=== PATIENT | female | born 1995 | race Caucasian/White ===

== ENCOUNTER 2020-06-16 10:25 | Emergency (ER) | payer OTHER, SELFPAY ==
--- NOTE | ~2020-06-16 | US_ITS ---
EXAMINATION: US PELVIS, LIMITED/FOLLOW UP CLINICAL INFORMATION: Right-sided pelvic pain. COMPARISON: CT scan of the abdomen and pelvis performed today. TECHNIQUE: FINDINGS: Uterus: 6.9 x 3.5 x 4.0 cm. Anteverted/anteflexed. The myometrium is unremarkable. The endometrial stripe measures up to 0.5 cm without focal abnormality. The cervix is unremarkable. Right ovary: 1.8 x 1.6 x 1.7 cm with a volume of 2.6 cm. Doppler interrogation showed no abnormal vascular flow. No right adnexal abnormality. Left ovary: 2.0 x 1.9 x 1.7 cm with a volume of 3.4 cm. Doppler interrogation showed no abnormal vascular flow. No left adnexal abnormality. Urinary bladder: Mildly distended without focal abnormality. US/US pelvic ovarian doppler IMPRESSION: Unremarkable pelvic ultrasound.
--- NOTE | ~2020-06-16 | CT_ITS ---
EXAMINATION: CT ABDOMEN AND PELVIS WITH CONTRAST CLINICAL INFORMATION: Right lower quadrant pain COMPARISON: None TECHNIQUE: Multidetector volumetric images were obtained from the superior aspect of the liver through the pubic symphysis following administration 85 mL of Omnipaque 350 intravenous contrast. Sagittal and coronal reformatted images were obtained on the technologist's workstation. Oral contrast: No This CT examination was performed using dose optimization techniques as appropriate, variously including the following: *Automated exposure control *Adjustment of mA and/or kV according to patient size (this includes techniques or standardized protocols for targeted exams where dose is matched to indication/reason for exam; i.e. extremities or head) *Use of iterative reconstruction technique DLP: 461 mGy-cm FINDINGS: LUNG BASES: The visualized lung bases are unremarkable. LIVER, GALLBLADDER, AND BILIARY TREE: The liver is normal in size, shape, and attenuation. No focal hepatic lesion or biliary ductal dilatation is present. The gallbladder is unremarkable with no evidence of radiopaque gallstones, gallbladder wall thickening, or obvious pericholecystic inflammatory changes. PANCREAS: Unremarkable. SPLEEN: Unremarkable. ADRENAL GLANDS: Unremarkable. KIDNEYS AND URETERS: The kidneys are normal in size, shape, and attenuation. No hydronephrosis, hydroureter, or calculi seen. No perinephric stranding. BLADDER: Unremarkable. GASTROINTESTINAL TRACT: The small and large bowel are unremarkable. The appendix is unremarkable. ABDOMINAL WALL: No significant hernia is appreciated. LYMPH NODES: Normal. VASCULAR: Unremarkable. PELVIC VISCERA: There is a small amount of fluid in the pelvis in the right adnexal region, possibly a recently ruptured ovarian cyst. OSSEOUS STRUCTURES: Unremarkable. CT/CT abdomen pelvis w con IMPRESSION: No focal inflammatory process or obstruction. Normal appendix. Small amount of free fluid in the right pelvis, possibly a recently ruptured ovarian cyst/follicle.
--- NOTE | ~2020-06-16 | US_ITS ---
EXAMINATION: US PELVIS, LIMITED/FOLLOW UP CLINICAL INFORMATION: Right-sided pelvic pain. COMPARISON: CT scan of the abdomen and pelvis performed today. TECHNIQUE: FINDINGS: Uterus: 6.9 x 3.5 x 4.0 cm. Anteverted/anteflexed. The myometrium is unremarkable. The endometrial stripe measures up to 0.5 cm without focal abnormality. The cervix is unremarkable. Right ovary: 1.8 x 1.6 x 1.7 cm with a volume of 2.6 cm. Doppler interrogation showed no abnormal vascular flow. No right adnexal abnormality. Left ovary: 2.0 x 1.9 x 1.7 cm with a volume of 3.4 cm. Doppler interrogation showed no abnormal vascular flow. No left adnexal abnormality. Urinary bladder: Mildly distended without focal abnormality. US/US pelvic limited IMPRESSION: Unremarkable pelvic ultrasound.
[2020-06-16 10:27] VITALS: BP 138/71; PULSE 94; RESP 16; TEMP 36.7; O2SAT 98; BMI 24.5
--- NOTE | 2020-06-16 11:09 | ED.ABDPAIN ---
HPI - Abdominal Pain General Chief Complaint: Abdominal Pain Stated Complaint: NAUSEA ABD PAIN Time Seen by Provider: 06/16/20 11:05 Source: patient Mode of arrival: ambulatory Limitations: no limitations History of Present Illness MD elicited complaint: abdominal pain Onset (ago): day(s) (2) Pain Consistency: constant Location: RLQ Severity: moderate Quality: stabbing Radiation: none Migration to: no migration Exacerbating factors: eating and vomiting Relieving factors: nothing Associated symptoms: nausea, vomiting and chills Related Data Previous Rx's Medication Instructions Recorded cyclobenzaprine 10 mg PO TID PRN #14 tab 06/16/20 ibuprofen 600 mg PO Q6H PRN #30 tab 06/16/20 ondansetron 4 mg PO Q8H PRN #20 tab 06/16/20 Allergies Allergy/AdvReac Type Severity Reaction Status Date / Time morphine [MORPHINE] Allergy Unknown HIVES Unverified 01/25/20 19:01 Review of Systems Review of Systems Constitutional : No Weight loss, No Fever, pos Chills ENT/Mouth : No sore throat, No Rhinorrhea Eyes: No Swelling, No Redness Cardiovascular : No Chest Pain, No SOB, NoEdema Respiratory : No Cough, No Sputum, No Wheezing Gastrointestinal : Positive Nausea, Positive Vomiting, no Diarrhea, positive abdominal Pain, No Hematochezia, No Melena Genitourinary : No Dysuria, No Urinary Frequency, No Hematuria, No Urgency Musculoskeletal : No joint pain, No Myalgias, No Joint Swelling Skin : No Skin Lesions, No rash Neuro : No Weakness, No Numbness, No Dizziness, No Headache Psych : No Anxiety/Panic, No Depression Heme/Lymph: No Bruising, No Lymphadenopathy Endocrine : No Polyuria, No Polydipsia All other systems reviewed and are negative. Physical Exam Vital Signs: Vital Signs: Last Vital Signs Temp 98.1 F 06/16/20 10:27 Pulse 94 06/16/20 10:27 Resp 16 06/16/20 10:27 BP 138/71 06/16/20 10:27 Pulse Ox 98 06/16/20 10:27 Body Mass Index 24.5 Appearance: Alert. Oriented X3. No acute distress. Eyes: Pupils equal, round and reactive to light. ENT: Pharynx normal. Neck: Normal inspection. Neck supple. CVS: Normal heart rate and rhythm. Pulses normal. Respiratory: No respiratory distress. Breath sounds normal. Abdomen: Soft and moderate ttp in R mid to RLQ with no rebound mild guarding, + Rovsings sign Skin: Skin warm and dry. Normal skin color. Normal skin turgor. Extremities: No lower extremity edema. No calf ttp Neuro: Oriented X 3. No motor deficit. No sensory deficit. Course Course Course Narrative: no WBC count - no appendicitis, normal GB, LFTs stable, likely ruptured cyst will obtain US to r/o torsion - patient has significant pain on arrival to the ED negative US able to tolerate PO stable for DC MDM - Abdominal Pain MDM Narrative Medical decision making narrative: 24 yo female with RLQ pain x 2 days with N/V at this time will need labs, CT scan for appendicitis, IV Toradol, IV ativan for anxiety Lab Data Result diagrams: 06/16/20 11:23 06/16/20 11:23 Labs: Lab Results 06/16/20 06/16/20 06/16/20 Range/Units 11:23 11:23 11:23 WBC 7.2 (4.8-10.8) X10*3/uL RBC 5.07 (4.20-5.50) X10*6/uL Hgb 15.0 (12.0-16.0) g/dl Hct 43.8 (37-47) % MCV 86.4 (80-98) fL MCH 29.6 (27.0-33.0) pg MCHC 34.2 (31.0-35.0) g/dl RDW 11.4 (11.0-16.0) % Plt Count 238 (160-400) X10*3/uL MPV 10.8 (9.4-12.3) fL Immature Gran % (Auto) 0.0 (0.0-0.4) % Neut % (Auto) 68.5 (45-73) % Lymph % (Auto) 23.9 (20-40) % Pike % (Auto) 5.8 (2-11) % Eos % (Auto) 1.0 (0-4) % Baso % (Auto) 0.8 (0-2) % Lymph # (Auto) 1.7 (1.2-4.9) X10*3/uL Pike # (Auto) 0.4 (0.1-1.2) X10*3/uL Eos # (Auto) 0.1 (0.0-0.4) X10*3/uL Baso # (Auto) 0.1 (0.0-0.2) X10*3/uL Abs Immat Gran (auto) 0.00 (0.00-0.03) X10*3/uL Absolute Neuts (auto) 4.9 (2.0-8.3) X10*3/uL Absolute Nucleated RBC 0.000 (0.0-0.012) X10*3/uL Nucleated RBC % (auto) 0.0 (0.0-0.2) /100WBC PT 13.3 H (10.8-13.0) SEC INR 1.1 (0.9-1.1) APTT 38.8 H (24.1-38.0) SEC Sodium 141 (135-145) mmol/L Potassium 3.7 (3.3-5.1) mmol/L Chloride 103 (96-108) mmol/L Carbon Dioxide 29 (22-29) mmol/L Anion Gap 13 (12-20) BUN 12 (9-16) mg/dL Creatinine 0.77 (0.5-1.4) mg/dL Estim Creat Clear Calc 91.3 Estimated GFR > 60 Random Glucose 94 (60-115) mg/dL Calcium 9.6 (8.4-10.2) mg/dL Magnesium 1.9 (1.6-2.6) mg/dL Total Bilirubin 1.1 H (0.0-1.0) mg/dL Direct Bilirubin 0.5 (0.0-0.5) mg/dL AST 15 (5-31) U/L ALT 14 (0-31) U/L Alkaline Phosphatase 48 (39-117) U/L Total Protein 7.8 (6.5-8.0) g/dL Albumin 5.0 (3.5-5.0) g/dL Lipase 17 (8-78) U/L Urine Color Urine Appearance Urine pH (5.0-8.0) Ur Specific [place]se[place] (1.005-1.025) Urine Protein (NEG-TRACE) MG/DL Urine Glucose (UA) (NEG) MG/DL Urine Ketones (NEG) MG/DL Urine Blood (NEG) Urine Nitrite (NEG) Ur Leukocyte Esterase (NEG) Urine RBC (0) /HPF Urine WBC (0-4) /HPF Ur Squamous Epith Cells /LPF Urine Bacteria /LPF Urine Mucus /LPF Urine Test (NEGATIVE) COVID-19 (HUONG) (Negative) COVID-19 Clin [facility] 06/16/20 06/16/20 Range/Units 11:37 11:37 WBC (4.8-10.8) X10*3/uL RBC (4.20-5.50) X10*6/uL Hgb (12.0-16.0) g/dl Hct (37-47) % MCV (80-98) fL MCH (27.0-33.0) pg MCHC (31.0-35.0) g/dl RDW (11.0-16.0) % Plt Count (160-400) X10*3/uL MPV (9.4-12.3) fL Immature Gran % (Auto) (0.0-0.4) % Neut % (Auto) (45-73) % Lymph % (Auto) (20-40) % Pike % (Auto) (2-11) % Eos % (Auto) (0-4) % Baso % (Auto) (0-2) % Lymph # (Auto) (1.2-4.9) X10*3/uL Pike # (Auto) (0.1-1.2) X10*3/uL Eos # (Auto) (0.0-0.4) X10*3/uL Baso # (Auto) (0.0-0.2) X10*3/uL Abs Immat Gran (auto) (0.00-0.03) X10*3/uL Absolute Neuts (auto) (2.0-8.3) X10*3/uL Absolute Nucleated RBC (0.0-0.012) X10*3/uL Nucleated RBC % (auto) (0.0-0.2) /100WBC PT (10.8-13.0) SEC INR (0.9-1.1) APTT (24.1-38.0) SEC Sodium (135-145) mmol/L Potassium (3.3-5.1) mmol/L Chloride (96-108) mmol/L Carbon Dioxide (22-29) mmol/L Anion Gap (12-20) BUN (9-16) mg/dL Creatinine (0.5-1.4) mg/dL Estim Creat Clear Calc Estimated GFR Random Glucose (60-115) mg/dL Calcium (8.4-10.2) mg/dL Magnesium (1.6-2.6) mg/dL Total Bilirubin (0.0-1.0) mg/dL Direct Bilirubin (0.0-0.5) mg/dL AST (5-31) U/L ALT (0-31) U/L Alkaline Phosphatase (39-117) U/L Total Protein (6.5-8.0) g/dL Albumin (3.5-5.0) g/dL Lipase (8-78) U/L Urine Color YELLOW Urine Appearance HAZY Urine pH 7.0 (5.0-8.0) Ur Specific [place]se[place] 1.025 (1.005-1.025) Urine Protein TRACE (NEG-TRACE) MG/DL Urine Glucose (UA) NEG (NEG) MG/DL Urine Ketones 15 (NEG) MG/DL Urine Blood 3+ H (NEG) Urine Nitrite NEG (NEG) Ur Leukocyte Esterase NEG (NEG) Urine RBC 15-29 H (0) /HPF Urine WBC 0 (0-4) /HPF Ur Squamous Epith Cells 2+ /LPF Urine Bacteria TRACE /LPF Urine Mucus 2+ /LPF Urine Test NEGATIVE (NEGATIVE) COVID-19 (HUONG) Negative (Negative) COVID-19 Clin Com See Note Discharge Plan Discharge Clinical Impression: Ovarian cyst rupture Abdominal pain Qualifiers: Abdominal location: right lower quadrant Qualified Code(s): R10.31 - Right lower quadrant pain Patient Disposition: Home, Self-Care Instructions: Abdominal Pain (ED), Ruptured Ovarian Cyst (ED) Additional Instructions: return to ED for any worsening symptoms or concerns Prescriptions: New cyclobenzaprine 10 mg tablet 10 mg PO TID PRN (Reason: muscle spasm) Qty: 14 RF: 0 ibuprofen 600 mg tablet 600 mg PO Q6H PRN (Reason: pain) Qty: 30 RF: 0 ondansetron 4 mg tablet,disintegrating 4 mg PO Q8H PRN (Reason: nausea and vomiting) Qty: 20 RF: 0 Referrals: Mouna Samson MD [Primary Care Provider] - 2 days (if not better) Stand Alone Forms: Work/School Release [facility] Past Medical History Attestation statement: The following information was validated with the patient. Medical History No known health problems Social History Social History (Updated 06/16/20 @ 11:24 by Olinda Jaime DO) Smoking Status: Never smoker Use of substances other than those prescribed or required for medical reasons: No Advance Directives: No Advance Directives Information Provided: No
[2020-06-16 11:27] LABS: MANUAL DIFF FLAG NO
[2020-06-16 11:28] LABS: Basophils Absolute Auto 0.1 X10*3/uL (0.0-0.2); Basophils Percent Auto 0.8 % (0-2); Eosinophils Absolute Auto 0.1 X10*3/uL (0.0-0.4); Hematocrit 43.8 % (37-47); Lymphocytes Absolute Auto 1.7 X10*3/uL (1.2-4.9); Lymphocytes Percent Auto 23.9 % (20-40); Mean Corpuscular HGB Conc 34.2 g/dl (31.0-35.0); Mean Corpuscular Hemoglobin 29.6 pg (27.0-33.0); Mean Corpuscular Volume 86.4 fL (80-98); Mean Platelet Volume 10.8 fL (9.4-12.3); Monocytes Absolute Auto 0.4 X10*3/uL (0.1-1.2); Monocytes Percent Auto 5.8 % (2-11); Neutrophils Absolute Auto 4.9 X10*3/uL (2.0-8.3); Neutrophils Percent Auto 68.5 % (45-73); Platelet Count 238 X10*3/uL (160-400); Red Blood Count 5.07 X10*6/uL (4.20-5.50); Red Cell Distribution Width 11.4 % (11.0-16.0); White Blood Count 7.2 X10*3/uL (4.8-10.8)
[2020-06-16 11:34] LABS: INTERNATIONAL NORM RATIO 1.1 (0.9-1.1); Prothrombin Time 13.3 SEC (10.8-13.0)
[2020-06-16] MEDS: LORazepam 2 MG/ML VIAL 0.5 MG IVPUSH (11:34)
[2020-06-16] MEDS: Ketorolac Tromethamine 30 MG/ML VIAL IVPUSH (11:34)
[2020-06-16] MEDS: ondansetron HCL 4 MG/2 ML VIAL IVPUSH (11:34)
[2020-06-16] MEDS: 0.9 % Sodium Chloride 1,000 ML 999 ML IVCONT (11:35)
[2020-06-16 11:36] LABS: Partial Thromboplastin Time 38.8 SEC (24.1-38.0)
[2020-06-16 11:49] LABS: Glucose Urine UA NEG (NEG); Leukocyte Esterase Urine NEG (NEG); Nitrite Urine NEG (NEG); Specific Gravity - Urine 1.025 (1.005-1.025); Urine Blood 3+ (NEG); Urine Ketones 15 MG/DL (NEG); Urine Protein TRACE MG/DL (NEG-TRACE)
[2020-06-16 11:51] LABS: Appearance Urine HAZY; Color Urine YELLOW; UPreg QC Valid YES; Urine Pregnancy NEGATIVE (NEGATIVE)
[2020-06-16 11:52] LABS: Alanine Aminotransferase 14 U/L (0-31); Alkaline Phosphatase 48 U/L (39-117); Anion Gap 13 (12-20); Aspartate Amino Transferase 15 U/L (5-31); Bilirubin Direct 0.5 mg/dL (0.0-0.5); Bilirubin Total 1.1 mg/dL (0.0-1.0); Blood Urea Nitrogen 12 mg/dL (9-16); Calcium 9.6 mg/dL (8.4-10.2); Carbon Dioxide 29 mmol/L (22-29); Chloride 103 mmol/L (96-108); Creatinine Clr Calc Pharmacy 91.3; Estimated Glomerular Filt Rate > 60; Glucose Random 94 mg/dL (60-115); Lipase 17 U/L (8-78); Magnesium 1.9 mg/dL (1.6-2.6); Potassium 3.7 mmol/L (3.3-5.1); Sodium 141 mmol/L (135-145); Total Protein 7.8 g/dL (6.5-8.0)
[2020-06-16 11:56] LABS: COVID-19 Test Negative (Negative)
[2020-06-16 12:12] LABS: Bacteria Urine TRACE /LPF; Mucus Urine 2+ /LPF; Squamous Epithelial Cell Urine 2+ /LPF; WBC Urine 0 /HPF (0-4)
[2020-06-16] MEDS: iohexoL 350 MG/ML 100 ML INFUS..BTL IV (13:13)
== END 2020-06-16 15:59 | disposition home or self-care (01) ==
PROVIDERS: Emergency Provider Emergency Medicine; PCP Internal Medicine
DX: R10.31 Right lower quadrant pain (principal); N83.201 Unspecified ovarian cyst, right side; Z20.822 Contact with and (suspected) exposure to COVID-19
CPT/HCPCS: 36415; 74177; 76857; 80048; 80076; 81001; 81025; 83690; 83735; 85025; 85610; 85730; 87635; 93975; 96361; 96374; 96375; 99283; 99284; J1885; J2060; J2405; Q9967

== ENCOUNTER → 2020-10-08 14:49 | Outpatient (BNVA) | payer OTHER, SELFPAY | PROVIDERS: PCP Internal Medicine; Visit Provider Physician Assistant | DX: S60.021A Contusion of right index finger without damage to nail, initial encounter (principal); W23.0XXA Caught, crushed, jammed, or pinched between moving objects, initial encounter | CPT/HCPCS: 73140; 99203 ==

== ENCOUNTER → 2020-10-15 09:35 | Outpatient (BNVA) | payer OTHER, SELFPAY | PROVIDERS: PCP Internal Medicine; Visit Provider Physician Assistant | DX: S60.021A Contusion of right index finger without damage to nail, initial encounter (principal); X58.XXXA Exposure to other specified factors, initial encounter | CPT/HCPCS: 99213 ==

== ENCOUNTER → 2020-12-09 15:12 | Outpatient (BNVA) | payer OTHER, SELFPAY | PROVIDERS: PCP Internal Medicine; Visit Provider Internal Medicine | DX: S41.151A Open bite of right upper arm, initial encounter (principal); W50.3XXA Accidental bite by another person, initial encounter | CPT/HCPCS: 99213 ==

== ENCOUNTER → 2021-09-18 13:00 | Outpatient (BNVA) | payer OTHER, SELFPAY | PROVIDERS: PCP Internal Medicine | DX: Z13.89 Encounter for screening for other disorder (principal) | CPT/HCPCS: 36415; 84450; 84460; 86803; 87389; 99203 ==

== ENCOUNTER → 2021-09-30 12:43 | Outpatient (BNVA) | payer OTHER, SELFPAY | PROVIDERS: PCP Internal Medicine | DX: Z13.89 Encounter for screening for other disorder (principal) | CPT/HCPCS: 73030; 73080; 73564; 99203 ==

== ENCOUNTER → 2021-10-02 08:28 | Outpatient (BNVA) | payer OTHER, SELFPAY | PROVIDERS: PCP Internal Medicine; Visit Provider Physician Assistant Medical | DX: Z13.89 Encounter for screening for other disorder (principal) | CPT/HCPCS: 99213 ==

== ENCOUNTER → 2021-10-17 09:50 | Outpatient (BNVA) | payer OTHER, SELFPAY | PROVIDERS: PCP Internal Medicine; Visit Provider Physician Assistant Medical | DX: Z13.89 Encounter for screening for other disorder (principal) | CPT/HCPCS: 99213 ==

== ENCOUNTER → 2021-12-24 08:48 | Outpatient (BNVA) | payer SELFPAY | PROVIDERS: PCP Internal Medicine | DX: Z02.83 Encounter for blood-alcohol and blood-drug test (principal) ==

== ENCOUNTER 2022-01-09 08:00 | Outpatient (RCR) | payer OTHER, SELFPAY ==
--- NOTE | 2021-10-16 15:37 | MHC.PT.EP ---
[facility] [place] Office [place] Office [place] Office [address] [phone] F: [phone] F: [phone] F: [phone] F: [phone] Physical Therapy Plan of Care Date of Evaluation: Date of Surgery: NA Diagnosis: right shoulder contusion right knee contusion Assessment: Shantel is a 26 F referred to PT for right shoulder contusion and right knee contusion. She presents with constant discomfort and pain in her shoulders throughout all activities and has difficulty with kneeling. She presents with limited cervical ROM and responds to repeated cervical retractions in sitting. Shantel will benefit from PT to increase her cervical ROM, centralize symptoms, receive education on postural positioning along with management of knee swelling and education on symptom management. Frequency and Duration: The patient will be seen 2/week for 4 weeks Short Term Goals: Patient will demonstrate 20% increase in cervical ROM to promote improved functional performance in 2 weeks Patient will demonstrate self management of pain to decrease activity limitations in 2 weeks [employer]ist Goals: Patient will be I with HEP to promote long-term self management and maintain functional capabilities in 4 weeks Patient will report a 50% decrease in pain to allow for return to work and PLOF in 4 weeks Treatment Plan: Modalities to reduce pain, spasms and effusion. Manual therapy to restore motion and function. Therapeutic exercise to improve strength and flexibility. Neuromuscular re-education for posture and balance. Therapeutic activities to return to functional activities of daily living. Electronically signed by: Annie Hoffman PT DPT Please sign and return to therapist. Thank you for your referral.
--- NOTE | 2022-01-09 09:16 | MHC.PT.DC ---
[facility] [place] Office [place] Office [place] Office [address] Krishna Beasley [address] [phone] F: [phone] F: [phone] F: [phone] F: [phone] Physical Therapy Discharge Report Diagnosis: right shoulder contusion right knee contusion Date of Surgery: NA Date of Evaluation: 10/16/21 Date of Discharge: 01/09/22 Treatments to Date: 17 Cancellations to Date: 0 No Shows to Date: 0 Discharge Status: Achieved Goals Improved Function Independent with HEP Discharge Summary: Shantel has completed 17 PT visits. She arrived stating she is feeling less stiff. She still experiences pain in her neck but it is less intense and it is mostly present with sitting for long duration. She has improved significantly and is independent with all HEPs. She has achieved all goals set for her as well. Shantel is therefore being d/c from PT today. Electronically signed by: Annie Hoffman PT DPT Please sign and return to therapist. Thank you for your referral.
== END 2022-01-09 09:17 | disposition home or self-care (01) ==
LOC: HO.PT 08:00
PROVIDERS: Visit Provider Physician Assistant Medical
DX: S40.011D Contusion of right shoulder, subsequent encounter (principal); S80.01XD Contusion of right knee, subsequent encounter
CPT/HCPCS: 97012; 97014; 97110; 97112; 97140; 97161

== ENCOUNTER → 2022-03-20 15:25 | Outpatient (BNVA) | payer OTHER, SELFPAY | DX: Z13.89 Encounter for screening for other disorder (principal) | CPT/HCPCS: 36415; 84450; 84460; 86803; 87389; 99211 ==

== ENCOUNTER → 2022-05-13 11:32 | Outpatient (BNVA) | payer OTHER, SELFPAY | PROVIDERS: PCP Hospitalist | DX: Z13.89 Encounter for screening for other disorder (principal) | CPT/HCPCS: 73130; 99204 ==

== ENCOUNTER → 2022-05-15 10:57 | Outpatient (BNVA) | payer OTHER, SELFPAY | PROVIDERS: PCP Hospitalist; Visit Provider Physician Assistant Medical | DX: Z13.89 Encounter for screening for other disorder (principal) | CPT/HCPCS: 99213 ==

== ENCOUNTER 2022-06-18 11:24 | Emergency (ER) | payer OTHER, SELFPAY ==
[2022-06-18 11:27] VITALS: BP 91/32; PULSE 83; RESP 16; O2SAT 99; BMI 25.4
[2022-06-18 11:35] VITALS: BP 116/59; PULSE 83; O2SAT 99
[2022-06-18 11:43] LABS: MANUAL DIFF FLAG NO
[2022-06-18] MEDS: ondansetron HCL 4 MG/2 ML VIAL IVPUSH (11:47)
[2022-06-18] MEDS: 0.9 % Sodium Chloride 1,000 ML 999 ML IV (11:47)
[2022-06-18] MEDS: Meclizine HCl 25 MG TABLET PO (11:47)
[2022-06-18] MEDS: Ketorolac Tromethamine 15 MG/ML VIAL IVPUSH (11:47)
[2022-06-18 11:57] LABS: Basophils Absolute Auto 0.1 X10*3/uL (0.0-0.2); Basophils Percent Auto 0.9 % (0-2); Eosinophils Absolute Auto 0.1 X10*3/uL (0.0-0.4); Eosinophils Percent Auto 1.9 % (0-4); Hematocrit 36.7 % (37.0-47.0); Hemoglobin 12.4 g/dl (12.0-16.0); Imm Gran Abs Auto 0.02 X10*3/uL (0.00-0.03); Imm Gran Pct Auto 0.3 % (0.0-0.4); Lymphocytes Absolute Auto 2.3 X10*3/uL (1.2-4.9); Lymphocytes Percent Auto 31.5 % (20-40); Mean Corpuscular HGB Conc 33.8 g/dl (31.0-35.0); Mean Corpuscular Hemoglobin 27.7 pg (27.0-33.0); Mean Corpuscular Volume 81.9 fL (80.0-98.0); Mean Platelet Volume 11.2 fL (9.4-12.3); Monocytes Absolute Auto 0.7 X10*3/uL (0.1-1.2); Monocytes Percent Auto 8.8 % (2-11); Neutrophils Absolute Auto 4.2 x10*3/uL (2.0-8.3); Neutrophils Percent Auto 56.6 % (45-73); Platelet Count 213 X10*3/uL (160-400); Red Blood Count 4.48 X10*6/uL (4.20-5.50); Red Cell Distribution Width 11.6 % (11.0-16.0); White Blood Count 7.4 X10*3/uL (4.8-10.8)
[2022-06-18 12:01] LABS: Alanine Aminotransferase 24 U/L (0-31); Albumin Level 3.9 g/dL (3.5-5.0); Alkaline Phosphatase 43 U/L (39-117); Anion Gap 10 (12-20); Aspartate Amino Transferase 24 U/L (5-31); Bilirubin Direct 0.3 mg/dL (0.0-0.5); Blood Urea Nitrogen 12 mg/dL (9-16); Calcium 9.1 mg/dL (8.4-10.2); Carbon Dioxide 28 mmol/L (22-29); Chloride 107 mmol/L (96-108); Creatinine Clr Calc Pharmacy 109.8; Estimated Glomerular Filt Rate > 60; Glucose Random 113 mg/dL (60-115); Lipase 17 U/L (8-78); Magnesium 1.8 mg/dL (1.6-2.6); Sodium 141 mmol/L (135-145); Total Protein 6.1 g/dL (6.5-8.0)
[2022-06-18 12:11] LABS: HCG Quantitative < 2 mIU/mL
[2022-06-18] MEDS: Butalb/Acetamin/Caff 50/325/40 TABLET 2 TAB PO (12:46)
[2022-06-18 12:52] LABS: Influenza A PCR NEGATIVE (Negative); Influenza B PCR NEGATIVE (Negative); Resp Syncy Virus RNA Qual PCR NEGATIVE (Negative); SARS COV2 PCR INHOUSE NEGATIVE (Negative)
--- NOTE | 2022-06-18 13:05 | ED.GENADULT ---
HPI - General Adult General Chief complaint: Syncope <ONEIDA Herrera Last Filed: 06/18/22 19:08> Stated complaint: NEAR SYNCOPE <ONEIDA Herrera Last Filed: 06/18/22 19:08> Time Seen by Provider: 06/18/22 11:29 <ONEIDA Herrera Last Filed: 06/18/22 19:08> Source: patient <ONEIDA Herrera Last Filed: 06/18/22 19:08> Mode of arrival: ambulatory <ONEIDA Herrera Last Filed: 06/18/22 19:08> History of Present Illness HPI narrative: 26-year-old female with no significant past medical history presenting to ED s/p near syncopal episode while at work. Patient walked out of a patient's room and began to feel lightheaded/pale. Reports feeling generally unwell with mild headache and upper abdominal pain x a few days, with mild decreased p.o. intake today. Reports associated paresthesias to hands and feet. Denies vision change/ loss, CP/SOB, nausea/vomiting, LOC. Denies taking anticoagulation. Headache not maximal at onset <ONEIDA Herrera Last Filed: 06/18/22 19:08> Onset (ago): minute(s) <ONEIDA Herrera Last Filed: 06/18/22 19:08> Related Data Home medications: Home Medications Medication Instructions Recorded Confirmed citalopram 10 mg tablet 10 mg PO DAILY 12/27/21 citalopram 20 mg tablet 20 mg PO DAILY 12/27/21 dupilumab 300 mg/2 mL subcutaneous mg subcut 12/27/21 syringe ([employer]) gabapentin 100 mg capsule 100 mg PO TID PRN anxiety 12/27/21 Previous Rx's Medication Instructions Recorded azithromycin 250 mg tablet See Rx Instructions PO .COMPLEX #6 12/27/21 tabs <ONEIDA Herrera Last Filed: 06/18/22 19:08> Allergies/adverse reactions: Allergies Allergy/AdvReac Type Severity Reaction Status Date / Time morphine [MORPHINE] Allergy Unknown HIVES Unverified 12/27/21 12:30 <ONEIDA Herrera Last Filed: 06/18/22 19:08> Review of Systems Review of Systems: Constitutional: No Fever, No Chills, No Night Sweats, No Fatigue, No Malaise ENT/Mouth: No Ear Pain, No Nasal Congestion, No sore throat, No Rhinorrhea, No Swallowing Difficulty Eyes: No Eye Pain, No Swelling, No Redness, No Vision Changes Cardiovascular: No Chest Pain, No SOB, No Palpitations Respiratory: No Cough, No Sputum, No Dyspnea Gastrointestinal: No Nausea, No Vomiting, No Diarrhea, No Constipation, + Abdominal discomfort Genitourinary: No Dysuria, No Hematuria, No Urinary Incontinence/retention Musculoskeletal: No joint pain, No Myalgias, No Joint Swelling Skin: No Skin Lesions, No rash Neuro: No Weakness, No Numbness, + Paresthesias, No Loss of Consciousness, + lightheaded, + Headache <ONEIDA Herrera - Last Filed: 06/18/22 19:08> Yes all other systems are reviewed and are negative <ONEIDA Herrera - Last Filed: 06/18/22 19:08> Constitutional: Constitutional: Reports as per HPI <ONEIDA Herrera - Last Filed: 06/18/22 19:08> [facility] Past Medical History Attestation statement: The following information was validated with the patient. <ONEIDA Herrera - Last Filed: 06/18/22 19:08> Medical History: Medical History No known health problems <ONEIDA Herrera Last Filed: 06/18/22 19:08> Social History Social History: Social History Advance Directives: No <ONEIDA Herrera Last Filed: 06/18/22 19:08> Physical Exam ED Vital Signs: Vital Signs - 24 hr 06/18/22 11:27 06/18/22 11:35 Pulse Rate 83 83 Respiratory Rate 16 Blood Pressure 91/32 L 116/59 L Pulse Oximetry 99 99 Oxygen Delivery Method Room Air Room Air BMI result Body Mass Index 25.4 <ONEIDA Herrera Last Filed: 06/18/22 19:08> Vital Signs - 24 hr 06/18/22 11:27 06/18/22 11:35 Pulse Rate 83 83 Respiratory Rate 16 Blood Pressure 91/32 L 116/59 L Pulse Oximetry 99 99 Oxygen Delivery Method Room Air Room Air BMI result Body Mass Index 25.4 <Nura Soria MD - Last Filed: 06/20/22 03:10> Const General: cooperative, healthy appearing and no acute distress <ONEIDA Herrera - Last Filed: 06/18/22 19:08> Orientation/consciousness: patient oriented x3 <ONEIDA Herrera - Last Filed: 06/18/22 19:08> Limitations: no limitations <ONEIDA Herrera - Last Filed: 06/18/22 19:08> HENMT Head: Yes normal to inspection and Yes atraumatic <ONEIDA Herrera - Last Filed: 06/18/22 19:08> Ears: hearing grossly normal bilaterally <ONEIDA Herrera - Last Filed: 06/18/22 19:08> General nose exam: Normal external nose present <ONEIDA Herrera - Last Filed: 06/18/22 19:08> Face and sinus: Yes normal facial exam <ONEIDA Herrera - Last Filed: 06/18/22 19:08> Eyes General: appearance normal, both eyes and all related structures <ONEIDA Herrera - Last Filed: 06/18/22 19:08> Pupils: Equal, round and reactive pupils present <ONEIDA Herrera - Last Filed: 06/18/22 19:08> EOM: EOMs intact bilaterally <ONEIDA Herrera - Last Filed: 06/18/22 19:08> Neck Neck: Yes normal visual inspection and Yes no meningeal signs <ONEIDA Herrera - Last Filed: 06/18/22 19:08> Resp Effort & Inspection: normal respiratory effort and no respiratory distress <ONEIDA Herrera - Last Filed: 06/18/22 19:08> Auscultation: clear to auscultation bilaterally <ONEIDA Herrera - Last Filed: 06/18/22 19:08> Cardio Rate: regular rate <ONIEDA Herrera - Last Filed: 06/18/22 19:08> Heart sounds: S1 normal heart sound present and S2 normal heart sound present <Iza Poulernat, PA - Last Filed: 06/18/22 19:08> GI Inspection: Yes normal to inspection <Iza Poulernat, PA - Last Filed: 06/18/22 19:08> Palpation (GI): Soft to palpation, nontender, no guarding and not rigid <Iza Poulernat, PA - Last Filed: 06/18/22 19:08> General: Yes no CVA tenderness <Iza Pouliot, PA - Last Filed: 06/18/22 19:08> Back/Spine/Pelvis Back: no CVA tenderness <Iza Pouliot, PA - Last Filed: 06/18/22 19:08> Skin Rashes: no rashes <Iza Pouliot, PA - Last Filed: 06/18/22 19:08> Wounds: no wounds <Iza Pouliot, PA - Last Filed: 06/18/22 19:08> Neuro General: patient oriented x3, gait normal, tone normal, no meningeal signs, no focal motor deficits and CN's II-XI intact bilaterally <Iza Patriciat, PA - Last Filed: 06/18/22 19:08> Cranial nerves: Yes CN's II-XII intact bilaterally and Yes Equal, round and reactive pupils present <Iza Poulernat, PA - Last Filed: 06/18/22 19:08> Gait exam (Neuro): Normal gait present <Iza Patriciat, PA - Last Filed: 06/18/22 19:08> Motor exam (neuro): 5/5 motor strength present throughout <Iza Poulernat, PA - Last Filed: 06/18/22 19:08> Extrem General: Yes normal to inspection <Iza Poulernat, PA - Last Filed: 06/18/22 19:08> Course Course Course Narrative: - BP improved - labs unremarkable. Patient reports symptomatic improvement after medications/ IVF given in the ED. Ambulating with steady gait, vital signs normalized, color normalized. Results discussed with patient including worrisome signs and symptoms and strict return precautions, and when to return to the emergency department. They verbalized understanding and feel safe for discharge at this time. <ONEIDA Herrera - Last Filed: 06/18/22 19:08> Medications Administered Discontinued Medications Generic Name Dose Route Start Last Admin Trade Name Freq PRN Reason Stop Dose Admin Acetaminophen/Butalbital/Caffeine 2 tab 06/18/22 12:29 06/18/22 12:46 Butalb/Acetamin/Caff 50/325/40 Tablet PO 06/18/22 12:30 2 tab ONCE ONE Administration Sodium Chloride 1,000 mls @ 999 mls/hr 06/18/22 11:30 06/18/22 13:15 Ns IV 06/18/22 12:30 Infused .Q1H1M ANGELICA Infusion Ketorolac Tromethamine 15 mg 06/18/22 11:35 06/18/22 11:47 Ketorolac Tromethamine 15 Mg/Ml Vial IVPUSH 06/18/22 11:36 15 mg ONCE ONE Administration Meclizine HCl 25 mg 06/18/22 11:35 06/18/22 11:47 Meclizine Hcl 25 Mg Tablet PO 06/18/22 11:36 25 mg ONCE ONE Administration Ondansetron HCl 4 mg 06/18/22 11:39 06/18/22 11:47 Ondansetron Hcl 4 Mg/2 Ml Vial IVPUSH 06/18/22 11:40 4 mg ONCE ONE Administration <ONEIDA Herrera - Last Filed: 06/18/22 19:08> Medications Administered Discontinued Medications Generic Name Dose Route Start Last Admin Trade Name Frecatalino PRN Reason Stop Dose Admin Acetaminophen/Butalbital/Caffeine 2 tab 06/18/22 12:29 06/18/22 12:46 Butalb/Acetamin/Caff 50/325/40 Tablet PO 06/18/22 12:30 2 tab ONCE ONE Administration Sodium Chloride 1,000 mls @ 999 mls/hr 06/18/22 11:30 06/18/22 13:15 Ns IV 06/18/22 12:30 Infused .Q1H1M ANGELICA Infusion Ketorolac Tromethamine 15 mg 06/18/22 11:35 06/18/22 11:47 Ketorolac Tromethamine 15 Mg/Ml Vial IVPUSH 06/18/22 11:36 15 mg ONCE ONE Administration Meclizine HCl 25 mg 06/18/22 11:35 06/18/22 11:47 Meclizine Hcl 25 Mg Tablet PO 06/18/22 11:36 25 mg ONCE ONE Administration Ondansetron HCl 4 mg 06/18/22 11:39 06/18/22 11:47 Ondansetron Hcl 4 Mg/2 Ml Vial IVPUSH 06/18/22 11:40 4 mg ONCE ONE Administration <Nura Soria MD - Last Filed: 06/20/22 03:10> Medical Decision Making Medical Decision Making MDM Narrative: 26-year-old female with no significant past medical history presenting to ED s/p near syncopal episode while at work. On exam initially pale & hypotensive, no focal neuro deficits, color/ BP improved with oral juice intake. Concern for vasovagal presyncope. rule out metabolic/infectious etiologies and . Low suspicion for ICH, meningitis/encephalitis, or appendicitis/diverticulitis /other abdominal pathology as abdomen soft and nontender. Lower suspicion for ACS/PE Plan: Labs, UA, COVID-19/influenza/RSV testing, IVF, pain control, re-evaluate Please refer to course for remaining clinical decision making, interpretation of labs/imaging results, and discussions with consultants and/or family members. <ONEIDA Herrera - Last Filed: 06/18/22 19:08> Differential Diagnosis Differential Diagnoses: The differential diagnosis associated with the presentation includes <ONEIDA Herrera - Last Filed: 06/18/22 19:08> as above <ONEIDA Herrera - Last Filed: 06/18/22 19:08> Lab Data [facility] Lab Attestation statement: I reviewed the patient's lab results. <ONEIDA Herrera - Last Filed: 06/18/22 19:08> Result Diagrams: 06/18/22 11:39 06/18/22 11:39 <ONEIDA Herrera - Last Filed: 06/18/22 19:08> Labs: Lab Results 06/18/22 06/18/22 06/18/22 Range/Units 11:39 11:39 11:39 WBC 7.4 (4.8-10.8) X10*3/uL RBC 4.48 (4.20-5.50) X10*6/uL Hgb 12.4 (12.0-16.0) g/dl Hct 36.7 L (37.0-47.0) % MCV 81.9 (80.0-98.0) fL MCH 27.7 (27.0-33.0) pg MCHC 33.8 (31.0-35.0) g/dl RDW 11.6 (11.0-16.0) % Plt Count 213 (160-400) X10*3/uL MPV 11.2 (9.4-12.3) fL Immature Gran % (Auto) 0.3 (0.0-0.4) % Neut % (Auto) 56.6 (45-73) % Lymph % (Auto) 31.5 (20-40) % Graves % (Auto) 8.8 (2-11) % Eos % (Auto) 1.9 (0-4) % Baso % (Auto) 0.9 (0-2) % Lymph # (Auto) 2.3 (1.2-4.9) X10*3/uL Graves # (Auto) 0.7 (0.1-1.2) X10*3/uL Eos # (Auto) 0.1 (0.0-0.4) X10*3/uL Baso # (Auto) 0.1 (0.0-0.2) X10*3/uL Abs Immat Gran (auto) 0.02 (0.00-0.03) X10*3/uL Absolute Neuts (auto) 4.2 (2.0-8.3) x10*3/uL Absolute Nucleated RBC 0.000 (0.0-0.012) X10*3/uL Nucleated RBC % (auto) 0.0 (0.0-0.2) /100WBC Sodium 141 (135-145) mmol/L Potassium 4.0 (3.3-5.1) mmol/L Chloride 107 (96-108) mmol/L Carbon Dioxide 28 (22-29) mmol/L Anion Gap 10 L (12-20) BUN 12 (9-16) mg/dL Creatinine 0.64 (0.5-1.4) mg/dL Estim Creat Clear Calc 109.8 Estimated GFR > 60 Random Glucose 113 (60-115) mg/dL Calcium 9.1 (8.4-10.2) mg/dL Magnesium 1.8 (1.6-2.6) mg/dL Total Bilirubin 1.0 (0.0-1.0) mg/dL Direct Bilirubin 0.3 (0.0-0.5) mg/dL AST 24 (5-31) U/L ALT 24 (0-31) U/L Alkaline Phosphatase 43 (39-117) U/L Total Protein 6.1 L (6.5-8.0) g/dL Albumin 3.9 (3.5-5.0) g/dL Lipase 17 (8-78) U/L Beta HCG, Quant < 2 mIU/mL Influenza Type A (PCR) (Negative) Influenza Type B (PCR) (Negative) RSV RNA Qual (PCR) (Negative) SARS-CoV-2 RNA (RT-PCR) (Negative) 06/18/22 Range/Units 12:07 WBC (4.8-10.8) X10*3/uL RBC (4.20-5.50) X10*6/uL Hgb (12.0-16.0) g/dl Hct (37.0-47.0) % MCV (80.0-98.0) fL MCH (27.0-33.0) pg MCHC (31.0-35.0) g/dl RDW (11.0-16.0) % Plt Count (160-400) X10*3/uL MPV (9.4-12.3) fL Immature Gran % (Auto) (0.0-0.4) % Neut % (Auto) (45-73) % Lymph % (Auto) (20-40) % Graves % (Auto) (2-11) % Eos % (Auto) (0-4) % Baso % (Auto) (0-2) % Lymph # (Auto) (1.2-4.9) X10*3/uL Graves # (Auto) (0.1-1.2) X10*3/uL Eos # (Auto) (0.0-0.4) X10*3/uL Baso # (Auto) (0.0-0.2) X10*3/uL Abs Immat Gran (auto) (0.00-0.03) X10*3/uL Absolute Neuts (auto) (2.0-8.3) x10*3/uL Absolute Nucleated RBC (0.0-0.012) X10*3/uL Nucleated RBC % (auto) (0.0-0.2) /100WBC Sodium (135-145) mmol/L Potassium (3.3-5.1) mmol/L Chloride (96-108) mmol/L Carbon Dioxide (22-29) mmol/L Anion Gap (12-20) BUN (9-16) mg/dL Creatinine (0.5-1.4) mg/dL Estim Creat Clear Calc Estimated GFR Random Glucose (60-115) mg/dL Calcium (8.4-10.2) mg/dL Magnesium (1.6-2.6) mg/dL Total Bilirubin (0.0-1.0) mg/dL Direct Bilirubin (0.0-0.5) mg/dL AST (5-31) U/L ALT (0-31) U/L Alkaline Phosphatase (39-117) U/L Total Protein (6.5-8.0) g/dL Albumin (3.5-5.0) g/dL Lipase (8-78) U/L Beta HCG, Quant mIU/mL Influenza Type A (PCR) NEGATIVE (Negative) Influenza Type B (PCR) NEGATIVE (Negative) RSV RNA Qual (PCR) NEGATIVE (Negative) SARS-CoV-2 RNA (RT-PCR) NEGATIVE (Negative) <ONEIDA Herrera - Last Filed: 06/18/22 19:08> Lab Results 06/18/22 06/18/22 06/18/22 Range/Units 11:39 11:39 11:39 WBC 7.4 (4.8-10.8) X10*3/uL RBC 4.48 (4.20-5.50) X10*6/uL Hgb 12.4 (12.0-16.0) g/dl Hct 36.7 L (37.0-47.0) % MCV 81.9 (80.0-98.0) fL MCH 27.7 (27.0-33.0) pg MCHC 33.8 (31.0-35.0) g/dl RDW 11.6 (11.0-16.0) % Plt Count 213 (160-400) X10*3/uL MPV 11.2 (9.4-12.3) fL Immature Gran % (Auto) 0.3 (0.0-0.4) % Neut % (Auto) 56.6 (45-73) % Lymph % (Auto) 31.5 (20-40) % Graves % (Auto) 8.8 (2-11) % Eos % (Auto) 1.9 (0-4) % Baso % (Auto) 0.9 (0-2) % Lymph # (Auto) 2.3 (1.2-4.9) X10*3/uL Graves # (Auto) 0.7 (0.1-1.2) X10*3/uL Eos # (Auto) 0.1 (0.0-0.4) X10*3/uL Baso # (Auto) 0.1 (0.0-0.2) X10*3/uL Abs Immat Gran (auto) 0.02 (0.00-0.03) X10*3/uL Absolute Neuts (auto) 4.2 (2.0-8.3) x10*3/uL Absolute Nucleated RBC 0.000 (0.0-0.012) X10*3/uL Nucleated RBC % (auto) 0.0 (0.0-0.2) /100WBC Sodium 141 (135-145) mmol/L Potassium 4.0 (3.3-5.1) mmol/L Chloride 107 (96-108) mmol/L Carbon Dioxide 28 (22-29) mmol/L Anion Gap 10 L (12-20) BUN 12 (9-16) mg/dL Creatinine 0.64 (0.5-1.4) mg/dL Estim Creat Clear Calc 109.8 Estimated GFR > 60 Random Glucose 113 (60-115) mg/dL Calcium 9.1 (8.4-10.2) mg/dL Magnesium 1.8 (1.6-2.6) mg/dL Total Bilirubin 1.0 (0.0-1.0) mg/dL Direct Bilirubin 0.3 (0.0-0.5) mg/dL AST 24 (5-31) U/L ALT 24 (0-31) U/L Alkaline Phosphatase 43 (39-117) U/L Total Protein 6.1 L (6.5-8.0) g/dL Albumin 3.9 (3.5-5.0) g/dL Lipase 17 (8-78) U/L Beta HCG, Quant < 2 mIU/mL Influenza Type A (PCR) (Negative) Influenza Type B (PCR) (Negative) RSV RNA Qual (PCR) (Negative) SARS-CoV-2 RNA (RT-PCR) (Negative) 06/18/22 Range/Units 12:07 WBC (4.8-10.8) X10*3/uL RBC (4.20-5.50) X10*6/uL Hgb (12.0-16.0) g/dl Hct (37.0-47.0) % MCV (80.0-98.0) fL MCH (27.0-33.0) pg MCHC (31.0-35.0) g/dl RDW (11.0-16.0) % Plt Count (160-400) X10*3/uL MPV (9.4-12.3) fL Immature Gran % (Auto) (0.0-0.4) % Neut % (Auto) (45-73) % Lymph % (Auto) (20-40) % Graves % (Auto) (2-11) % Eos % (Auto) (0-4) % Baso % (Auto) (0-2) % Lymph # (Auto) (1.2-4.9) X10*3/uL Graves # (Auto) (0.1-1.2) X10*3/uL Eos # (Auto) (0.0-0.4) X10*3/uL Baso # (Auto) (0.0-0.2) X10*3/uL Abs Immat Gran (auto) (0.00-0.03) X10*3/uL Absolute Neuts (auto) (2.0-8.3) x10*3/uL Absolute Nucleated RBC (0.0-0.012) X10*3/uL Nucleated RBC % (auto) (0.0-0.2) /100WBC Sodium (135-145) mmol/L Potassium (3.3-5.1) mmol/L Chloride (96-108) mmol/L Carbon Dioxide (22-29) mmol/L Anion Gap (12-20) BUN (9-16) mg/dL Creatinine (0.5-1.4) mg/dL Estim Creat Clear Calc Estimated GFR Random Glucose (60-115) mg/dL Calcium (8.4-10.2) mg/dL Magnesium (1.6-2.6) mg/dL Total Bilirubin (0.0-1.0) mg/dL Direct Bilirubin (0.0-0.5) mg/dL AST (5-31) U/L ALT (0-31) U/L Alkaline Phosphatase (39-117) U/L Total Protein (6.5-8.0) g/dL Albumin (3.5-5.0) g/dL Lipase (8-78) U/L Beta HCG, Quant mIU/mL Influenza Type A (PCR) NEGATIVE (Negative) Influenza Type B (PCR) NEGATIVE (Negative) RSV RNA Qual (PCR) NEGATIVE (Negative) SARS-CoV-2 RNA (RT-PCR) NEGATIVE (Negative) <Nura Soria MD - Last Filed: 06/20/22 03:10> Radiology Impression Discussion of test interpretation with radiology: I have reviewed the radiologist's reading. <ONEIDA Herrera - Last Filed: 06/18/22 19:08> Prescription Management I considered prescription management with: Pain Medication <ONEIDA Herrera - Last Filed: 06/18/22 19:08> Attestation Attending Attestation: I reviewed [employer]ANCH CHIEF/PA/Resident note, assessment and plan. I agree with the documentation, assessment and plan unless otherwise stated. <Nura Soria MD - Last Filed: 06/20/22 03:10> Discharge Plan Discharge Clinical Impression: Near syncope <ONEIDA Herrera - Last Filed: 06/18/22 19:08> Patient Disposition: Home, Self-Care <ONEIDA Herrera - Last Filed: 06/18/22 19:08> Instructions: Near Syncope (ED) <ONEIDA Herrera - Last Filed: 06/18/22 19:08> Additional Instructions: your blood work was reassuring. Tested negative for COVID-19, the flu, and RSV. Please stay hydrated. Follow up with her doctor. If symptoms persist worsen return to the emergency department <ONEIDA Herrera - Last Filed: 06/18/22 19:08> Prescriptions: No Action citalopram 10 mg tablet 10 mg PO DAILY citalopram 20 mg tablet 20 mg PO DAILY Dupixent Syringe 300 mg/2 mL syringe subcut gabapentin 100 mg capsule 100 mg PO TID PRN (Reason: anxiety) azithromycin 250 mg tablet See Rx Instructions PO .COMPLEX Qty: 6 0RF Rx Instructions: take 500 mg today (day 1), then 250 mg for 4 days (days 2-5) PO <ONEIDA Herrera - Last Filed: 06/18/22 19:08> Stand Alone Forms: Work/School Release <ONEIDA Herrera - Last Filed: 06/18/22 19:08> Interventions: ED Discharge Assessment Last Done: 06/18/22 13:16 <ONEIDA Herrera - Last Filed: 06/18/22 19:08> Discharge Date/Time: 06/18/22 13:16 <ONEIDA Herrera - Last Filed: 06/18/22 19:08>
== END 2022-06-18 13:16 | disposition home or self-care (01) ==
PROVIDERS: Physician Assistant; Emergency Provider Emergency Medicine
DX: R55 Syncope and collapse (principal); R51.9 Headache, unspecified; Z20.822 Contact with and (suspected) exposure to COVID-19; Z20.828 Contact with and (suspected) exposure to other viral communicable diseases
CPT/HCPCS: 0241U; 36415; 80053; 82248; 83690; 83735; 84702; 85025; 96361; 96374; 96375; 99283; 99284; J1885; J2405

== ENCOUNTER 2022-07-06 16:20 | Outpatient (REF) | payer OTHER, SELFPAY ==
[2022-07-07 10:49] LABS: Campylobacter Not Detected (Not Detect.); Plesiomonas shigelloides Not Detected (Not Detect.); Salmonella Not Detected (Not Detect.); Vibrio Not Detected (Not Detect.); Vibrio Cholerae Not Detected (Not Detect.)
[2022-07-07 10:50] LABS: Adenovirus F 40/41 Not Detected (Not Detect.); Astrovirus Not Detected (Not Detect.); Cryptosporidium Not Detected (Not Detect.); Cyclospora cayetanensis Not Detected (Not Detect.); E. coli EAEC Not Detected (Not Detect.); E. coli EPEC Not Detected (Not Detect.); E. coli ETEC Not Detected (Not Detect.); E. coli STEC Not Detected (Not Detect.); Entamoeba histolytica Not Detected (Not Detect.); Giardia lamblia Not Detected (Not Detect.); Norovirus GI/GII Not Detected (Not Detect.); Rotavirus A Not Detected (Not Detect.); Sapovirus Not Detected (Not Detect.); Shigella sp./EIEC Not Detected (Not Detect.); Yersinia enterocolitica Detected (Not Detect.)
[2022-07-07 12:00] LABS: CDiff Gene PCR NEGATIVE (Negative)
== END 2022-07-06 16:21 | disposition home or self-care (01) ==
LOC: HO.LAB 16:20
PROVIDERS: PCP Hospitalist; Visit Provider Physician Assistant Medical
DX: R19.7 Diarrhea, unspecified (principal); Z20.828 Contact with and (suspected) exposure to other viral communicable diseases
CPT/HCPCS: 87493; 87507

== ENCOUNTER 2022-07-15 09:27 | Outpatient (REF) | payer OTHER, SELFPAY ==
[2022-07-18 07:09] LABS: TS Negative Control Passed; TS Panel A 1; TS Panel B 0; TS Positive Control Passed; TSpotTB Negative (Negative)
== END 2022-07-15 09:28 | disposition home or self-care (01) ==
LOC: HO.LAB 09:27
PROVIDERS: PCP Hospitalist; Visit Provider Physician Assistant
DX: Z11.1 Encounter for screening for respiratory tuberculosis (principal)
CPT/HCPCS: 36415; 86481

== ENCOUNTER 2022-07-30 08:57 | Outpatient (REF) | payer OTHER, SELFPAY ==
--- NOTE | ~2022-07-30 | US_ITS ---
EXAMINATION: US PELVIS CLINICAL INFORMATION: History of ovarian cysts with right lower quadrant pain COMPARISON: June 16, 2020 TECHNIQUE: Ultrasound of the pelvis is performed using both transabdominal and transvaginal transducers along with Doppler. Transvaginal imaging is performed due to inadequate visualization transabdominally. FINDINGS: Uterus: The uterus is anteverted and measures 8.1 x 3.4 x 3.5 cm. The cervix appears unremarkable. The double wall endometrial thickness is 0.5 mm. The uterus is smooth in contour and has normal myometrial echogenicity. No visible fibroid. Adnexa: Right ovary measures 5.1 x 3.4 x 4.4 cm. There is a heterogeneous cystic structure present measuring 4.8 x 2.9 x 3.1 cm in size with some floating debris which appearance of a hemorrhagic cyst. There is some free fluid seen surrounding the right ovary. Left ovary measures 2.3 x 1.9 x 1.9 cm. No suspicious left adnexal findings. There is a moderate amount of simple appearing fluid seen within the cul-de-sac. US/US pelvic and transvaginal IMPRESSION: Probable right ovarian hemorrhagic cyst with moderate free fluid. Recommend repeat pelvic ultrasound study in 6 weeks.
== END 2022-07-30 08:58 | disposition home or self-care (01) ==
LOC: HO.US 08:57
PROVIDERS: PCP Hospitalist; Visit Provider Physician Assistant
DX: R10.30 Lower abdominal pain, unspecified (principal); R10.2 Pelvic and perineal pain; Z87.42 Personal history of other diseases of the female genital tract
CPT/HCPCS: 76830; 76856

== ENCOUNTER 2022-08-05 05:05 | Emergency (ER) | payer OTHER, SELFPAY ==
--- NOTE | ~2022-08-05 | US_ITS ---
EXAMINATION: US PELVIS CLINICAL INFORMATION: Right lower quadrant pain with history of ovarian cyst. COMPARISON: 07/30/2022 TECHNIQUE: Ultrasound of the pelvis is performed using both transabdominal and transvaginal transducers along with Doppler. Transvaginal imaging is performed due to inadequate visualization transabdominally. FINDINGS: Uterus: The uterus is anteverted and measures 7.1 x 3.3 x 5.2 cm. Trace fluid noted in the cervix. The double wall endometrial thickness is 8 mm. The uterus is smooth in contour and has normal myometrial echogenicity. No visible fibroid. Adnexa: Both ovaries are visualized. There is normal color flow to the adnexa. There is no ovarian torsion. Small volume of pelvic free fluid on the right. Right ovary measures 3.8 x 2.8 x 3.1 cm. Normal arterial and venous spectral waveforms. Dominant follicle noted measuring 1.9 cm. Left ovary measures 3.8 x 1.5 x 2.2 cm. Normal arterial and venous spectral waveforms. US/US pelvic and transvaginal IMPRESSION: No evidence of active ovarian torsion at this time. Dominant right ovarian follicle noted. Small volume of pelvic free fluid on the right.
--- NOTE | ~2022-08-05 | CT_ITS ---
EXAMINATION: CT ABDOMEN AND PELVIS WITH CONTRAST CLINICAL INFORMATION: Right lower quadrant pain question appendicitis. COMPARISON: None available. TECHNIQUE: Multidetector volumetric images were obtained from the superior aspect of the liver through the pubic symphysis following administration 85 mL of Omnipaque 350 intravenous contrast. Sagittal and coronal reformatted images were obtained on the technologist's workstation. Oral contrast: No This CT examination was performed using dose optimization techniques as appropriate, variously including the following: *Automated exposure control *Adjustment of mA and/or kV according to patient size (this includes techniques or standardized protocols for targeted exams where dose is matched to indication/reason for exam; i.e. extremities or head) *Use of iterative reconstruction technique DLP: 486 mGy-cm FINDINGS: LUNG BASES: The lung bases are clear. The heart size is normal. LIVER, GALLBLADDER, AND BILIARY TREE: The liver is normal in size, shape, and attenuation. No focal hepatic lesion or biliary ductal dilatation is present. The gallbladder is unremarkable with no evidence of radiopaque gallstones, gallbladder wall thickening, or obvious pericholecystic inflammatory changes. PANCREAS: Unremarkable. SPLEEN: Unremarkable. ADRENAL GLANDS: Unremarkable. KIDNEYS AND URETERS: The kidneys are normal in size, shape, and attenuation. No hydronephrosis, hydroureter, or calculi seen. No perinephric stranding. There is a 6 mm hypodensity upper pole right kidney probable small cyst. BLADDER: Unremarkable. GASTROINTESTINAL TRACT: There is scattered stool and gas seen throughout the colon without distention. Most of the stool is within the right lower quadrant with cecum lying in the pelvis The small bowel loops are normal caliber. Appendix is normal caliber. No free air or free fluid seen. ABDOMINAL WALL: No significant hernia is appreciated. LYMPH NODES: Normal. VASCULAR: Unremarkable. PELVIC VISCERA: Unremarkable. OSSEOUS STRUCTURES: Unremarkable. CT/CT abdomen pelvis w IV con IMPRESSION: Moderate stool in the right colon and cecum with low lying cecum in the pelvis. Appendix is normal. No acute intra-abdominal process seen. Fleischner guidelines were followed.
[2022-08-05 05:12] VITALS: BP 132/82; PULSE 110; RESP 20; TEMP 37.3; O2SAT 98; BMI 25.6
--- NOTE | 2022-08-05 05:17 | ED_ITS ---
HPI - Abdominal Pain General Chief Complaint: Abdominal Pain Stated Complaint: Abdominal pain & nausea Time Seen by Provider: 08/05/22 05:17 Source: patient Mode of arrival: ambulatory Limitations: no limitations History of Present Illness HPI narrative: Patient history of right ovarian cyst 4.8 cm on ultrasound done on 07/10/2022 woke up from the sleep for diffuse pain in the lower abdomen vomited 3 times with moy sea no chills no urinary symptoms Related Data Home Medications Medication Instructions Recorded Confirmed citalopram 10 mg tablet 10 mg PO DAILY 12/27/21 citalopram 20 mg tablet 20 mg PO DAILY 12/27/21 dupilumab 300 mg/2 mL subcutaneous mg subcut 12/27/21 syringe ([employer]) gabapentin 100 mg capsule 100 mg PO TID PRN anxiety 12/27/21 hydroxyzine HCl 10 mg tablet 10 - 20 mg PO DAILY PRN insomnia 07/30/22 triamcinolone acetonide 0.1 % appl topical 07/30/22 topical cream Previous Rx's Medication Instructions Recorded epinephrine 0.3 mg/0.3 mL 0.3 mg (0.3 mL) IM Q4H PRN 07/30/22 injection, auto-injector (EpiPen anaphylaxis 30 days #2 ea 2-Russell) Allergies Allergy/AdvReac Type Severity Reaction Status Date / Time morphine [MORPHINE] Allergy Unknown HIVES Verified 08/05/22 05:23 Review of Systems Review of Systems Yes all other systems are reviewed and are negative PMFSH Past Medical History Medical History Anxiety Asthma Eczema Migraine headache No known health problems Psoriasis Surgical History Hx of tonsillectomy Family History Family History (Updated 07/30/22 @ 15:27 by Judith Fuentes) Mother Asthma Diabetes FHx: uterine cancer Psychiatric problem Father Asthma Diabetes Psychiatric problem Abuse, drug or alcohol Maternal Grandmother Diabetes Hypertension Paternal Grandmother Hypertension Psychiatric problem Clotting disorder Maternal Grandfather Hypertension Family history of throat cancer Paternal Grandfather Diabetes Cancer Brother Asthma Thyroid disorder Social History Social History Alcohol intake: current Alcohol intake frequency: holidays/special occasions only Patient Tobacco Use Status: Never used Tobacco Smoked in Last 30 Days: No e-Cigarette/Vaping Use: Never Used Use of substances other than those prescribed or required for medical reasons: No Advance Directives: No Advance Directives Information Provided: No Patient : No Current occupational status: employed Current occupation: [employer] Current occupational exposures/hazards: Yes Physical Exam ED Vital Signs: Vital Signs - 24 hr 08/05/22 05:12 08/05/22 05:57 Temperature 99.1 F Pulse Rate 110 H 96 Respiratory Rate 20 16 Blood Pressure 132/82 100/58 L Pulse Oximetry 98 Oxygen Delivery Method Room Air BMI result Body Mass Index 25.6 Appearance: Alert. Oriented X3. No acute distress. Eyes: PERRLA, No Nystagmus ENT: Pharynx normal. Oral Mucosa moist Neck: Normal inspection. Neck supple. CVS: Normal heart rate and rhythm. Pulses normal. Respiratory: No respiratory distress. Equal air entry bilateral, no wheezing/rales/rhonchi Abdomen: Soft and diffuse suprapubic tenderness without rebound tenderness ,guarding++ at right lower quadrant McBurney's point, Bowel sounds are present, no mass palpable, no CVA tenderness Skin: Skin warm and dry. Normal skin color. neuro: Alert oriented x3 no focal deficit Medical Decision Making Medical Decision Making [facility] Narrative: Patient with ovarian cyst comes here for sudden onset of severe pain pelvic ultrasound showed decreased size of the follicle to 1.9 cm no signs of torsion. Patient still has tenderness right quadrant is slight leukocytosis will get CT abdomen rule out appendicitis Differential Diagnosis Ovarian torsion/appendicitis/ovarian cysts/UTI/kidney stone Lab Data [facility] Lab Attestation statement: I reviewed the patient's lab results. 08/05/22 05:18 08/05/22 05:18 Labs: Lab Results 08/05/22 08/05/22 Range/Units 05:18 05:18 WBC 11.7 H (4.8-10.8) X10*3/uL RBC 5.19 (4.20-5.50) X10*6/uL Hgb 14.2 (12.0-16.0) g/dl Hct 41.8 (37.0-47.0) % MCV 80.5 (80.0-98.0) fL MCH 27.4 (27.0-33.0) pg MCHC 34.0 (31.0-35.0) g/dl RDW 12.6 (11.0-16.0) % Plt Count 278 D (160-400) X10*3/uL MPV 10.8 (9.4-12.3) fL Immature Gran % (Auto) 0.3 (0.0-0.4) % Neut % (Auto) 74.1 H (45-73) % Lymph % (Auto) 14.0 L (20-40) % [place] % (Auto) 9.8 (2-11) % Eos % (Auto) 1.5 (0-4) % Baso % (Auto) 0.3 (0-2) % Lymph # (Auto) 1.6 (1.2-4.9) X10*3/uL [place] # (Auto) 1.2 (0.1-1.2) X10*3/uL Eos # (Auto) 0.2 (0.0-0.4) X10*3/uL Baso # (Auto) 0.0 (0.0-0.2) X10*3/uL Abs Immat Gran (auto) 0.04 H (0.00-0.03) X10*3/uL Absolute Neuts (auto) 8.7 H (2.0-8.3) x10*3/uL Absolute Nucleated RBC 0.000 (0.0-0.012) X10*3/uL Nucleated RBC % (auto) 0.0 (0.0-0.2) /100WBC Sodium 142 (135-145) mmol/L Potassium 3.8 (3.3-5.1) mmol/L Chloride 106 (96-108) mmol/L Carbon Dioxide 24 (22-29) mmol/L Anion Gap 16 (12-20) BUN 11 (9-16) mg/dL Creatinine 0.66 (0.5-1.4) mg/dL Estim Creat Clear Calc 111.1 Estimated GFR > 60 Random Glucose 134 H (60-115) mg/dL Calcium 8.6 (8.4-10.2) mg/dL Total Bilirubin 0.6 (0.0-1.0) mg/dL AST 18 (5-31) U/L ALT 16 (0-31) U/L Alkaline Phosphatase 46 (39-117) U/L Total Protein 6.6 (6.5-8.0) g/dL Albumin 4.2 (3.5-5.0) g/dL Beta HCG, Quant < 2 mIU/mL Radiology Impression Discussion of test interpretation with radiology: I have reviewed the radiologist's reading. Radiologist Impression: [address] [address] Ultrasound Report Signed Patient: Shantel Park MR#: [id number] : 1995 Acct:[id number] Age/Sex: 26 / F ADM Date: 08/05/22 Loc: .ED Attending Dr: Ordering Physician: Johny Metz MD Date of Service: 08/05/22 Procedure(s): US pelvic and transvaginal Accession Number(s): [id number] cc: Johny Metz MD~ EXAMINATION:? US PELVIS CLINICAL INFORMATION:? Right lower quadrant pain with history of ovarian cyst. COMPARISON: 07/30/2022 TECHNIQUE: Ultrasound of the pelvis is performed using both transabdominal and transvaginal transducers along with Doppler. Transvaginal imaging is performed due to inadequate visualization transabdominally. FINDINGS: Uterus: The uterus is anteverted and measures 7.1 x 3.3 x 5.2 cm.? Trace fluid noted in the cervix. The double wall endometrial thickness is 8 mm.? The uterus is smooth in contour and has normal myometrial echogenicity. ? No visible fibroid. Adnexa: Both ovaries are visualized. There is normal color flow to the adnexa. There is no ovarian torsion.? Small volume of pelvic free fluid on the right. Right ovary measures 3.8 x 2.8 x 3.1 cm. Normal arterial and venous spectral waveforms. Dominant follicle noted measuring 1.9 cm. Left ovary measures 3.8 x 1.5 x 2.2 cm. Normal arterial and venous spectral waveforms. US/US pelvic and transvaginal IMPRESSION: No evidence of active ovarian torsion at this time. Dominant right ovarian follicle noted. Small volume of pelvic free fluid on the right. ? Medications Administered Discontinued Medications Generic Name Dose Route Start Last Admin Trade Name Freq PRN Reason Stop Dose Admin Sodium Chloride 1,000 mls @ 999 mls/hr 08/05/22 05:22 08/05/22 05:31 Ns IV 08/05/22 06:22 999 mls/hr .Q1H1M ONE Administration Ketorolac Tromethamine 30 mg 08/05/22 05:22 08/05/22 05:27 Ketorolac Tromethamine 30 Mg/Ml Vial IVPUSH 08/05/22 05:23 30 mg ONCE ONE Administration Discharge Plan Discharge Clinical Impression: Abdominal pain Patient Disposition: Still a Patient Prescriptions: No Action citalopram 10 mg tablet 10 mg PO DAILY citalopram 20 mg tablet 20 mg PO DAILY Dupixent Syringe 300 mg/2 mL syringe subcut gabapentin 100 mg capsule 100 mg PO TID PRN (Reason: anxiety) hydroxyzine HCl 10 mg tablet 10 - 20 mg PO DAILY PRN (Reason: insomnia) triamcinolone acetonide 0.1 % cream topical epinephrine [EpiPen 2-Russell] 0.3 mg/0.3 mL auto-injector 0.3 mg IM Q4H PRN (Reason: anaphylaxis) 30 Days Qty: 2 3RF
[2022-08-05 05:23] LABS: MANUAL DIFF FLAG NO
[2022-08-05 05:24] LABS: Basophils Percent Auto 0.3 % (0-2); Eosinophils Absolute Auto 0.2 X10*3/uL (0.0-0.4); Eosinophils Percent Auto 1.5 % (0-4); Hematocrit 41.8 % (37.0-47.0); Hemoglobin 14.2 g/dl (12.0-16.0); Imm Gran Abs Auto 0.04 X10*3/uL (0.00-0.03); Imm Gran Pct Auto 0.3 % (0.0-0.4); Lymphocytes Absolute Auto 1.6 X10*3/uL (1.2-4.9); Mean Corpuscular Hemoglobin 27.4 pg (27.0-33.0); Mean Corpuscular Volume 80.5 fL (80.0-98.0); Mean Platelet Volume 10.8 fL (9.4-12.3); Monocytes Absolute Auto 1.2 X10*3/uL (0.1-1.2); Monocytes Percent Auto 9.8 % (2-11); Neutrophils Absolute Auto 8.7 x10*3/uL (2.0-8.3); Neutrophils Percent Auto 74.1 % (45-73); Platelet Count 278 X10*3/uL (160-400); Red Blood Count 5.19 X10*6/uL (4.20-5.50); Red Cell Distribution Width 12.6 % (11.0-16.0); White Blood Count 11.7 X10*3/uL (4.8-10.8)
[2022-08-05] MEDS: Ketorolac Tromethamine 30 MG/ML VIAL IVPUSH (05:27)
[2022-08-05] MEDS: 0.9 % Sodium Chloride 1,000 ML 999 ML IV (05:31)
[2022-08-05 05:47] LABS: Alanine Aminotransferase 16 U/L (0-31); Albumin Level 4.2 g/dL (3.5-5.0); Alkaline Phosphatase 46 U/L (39-117); Anion Gap 16 (12-20); Aspartate Amino Transferase 18 U/L (5-31); Bilirubin Total 0.6 mg/dL (0.0-1.0); Blood Urea Nitrogen 11 mg/dL (9-16); Calcium 8.6 mg/dL (8.4-10.2); Carbon Dioxide 24 mmol/L (22-29); Chloride 106 mmol/L (96-108); Creatinine Clr Calc Pharmacy 111.1; Estimated Glomerular Filt Rate > 60; Glucose Random 134 mg/dL (60-115); Potassium 3.8 mmol/L (3.3-5.1); Sodium 142 mmol/L (135-145); Total Protein 6.6 g/dL (6.5-8.0)
[2022-08-05 05:52] LABS: HCG Quantitative < 2 mIU/mL
[2022-08-05 05:57] VITALS: BP 100/58; PULSE 96; RESP 16
[2022-08-05] MEDS: ondansetron HCL 4 MG/2 ML VIAL IVPUSH (07:00)
[2022-08-05] MEDS: iohexoL 350 MG/ML 100 ML INFUS..BTL 85 ML IV (07:05)
--- NOTE | 2022-08-05 07:11 | PC.NURSE ---
Patient returned from CT tolerating IVF complaint of pain with movement, toradol given previously helped with pain off going RN admin antiemetic will reassess will CTM
[2022-08-05 07:20] LABS: Appearance Urine Clear; Color Urine Dark Yellow; Glucose Urine UA Negative (Negative); Leukocyte Esterase Urine Small (1+) (Negative); Nitrite Urine Negative (Negative); PH >= 9.0 (5.0-9.0); Specific Gravity - Urine >= 1.030 (1.005-1.025); UMIC TRIGGER UACC YES; Urine Blood Small (1+) (Negative); Urine Ketones Trace mg/dL (Negative); Urine Protein 30 (1+) mg/dL (Neg-Trace)
[2022-08-05 07:32] LABS: Bacteria Urine None Seen (None Seen); Hyaline Casts Urine 0-2 /LPF (0-2); UACC Culture Trigger YES; WBC Urine 0-5 /HPF (0-5)
[2022-08-05 08:22] VITALS: BP 99/58; PULSE 86; RESP 17; TEMP 36.4; O2SAT 95
== END 2022-08-05 08:42 | disposition home or self-care (01) ==
PROVIDERS: Emergency Provider Internal Medicine
DX: N83.201 Unspecified ovarian cyst, right side (principal); R10.31 Right lower quadrant pain; R11.2 Nausea with vomiting, unspecified; Z79.899 Other long term (current) drug therapy
CPT/HCPCS: 36415; 74177; 76830; 76856; 80053; 81001; 84702; 85025; 87086; 96361; 96374; 96375; 99284; J1885; J2405; Q9967

== ENCOUNTER 2022-08-13 16:25 | Outpatient (REF) | payer OTHER, SELFPAY ==
[2022-08-14 12:24] LABS: Influenza A PCR NEGATIVE (Negative); Influenza B PCR NEGATIVE (Negative); Resp Syncy Virus RNA Qual PCR NEGATIVE (Negative); SARS COV2 PCR INHOUSE NEGATIVE (Negative)
== END 2022-08-13 16:26 | disposition home or self-care (01) ==
LOC: HO.LAB 16:25
PROVIDERS: Visit Provider Hospitalist
DX: J02.8 Acute pharyngitis due to other specified organisms (principal); B97.89 Other viral agents as the cause of diseases classified elsewhere; Z20.822 Contact with and (suspected) exposure to COVID-19
CPT/HCPCS: 0241U

== ENCOUNTER 2022-10-26 07:32 | Outpatient (REF) | payer OTHER, SELFPAY ==
[2022-10-26 08:16] LABS: Hematocrit 38.8 % (37.0-47.0); Hemoglobin 12.7 g/dl (12.0-16.0); Mean Corpuscular HGB Conc 32.7 g/dl (31.0-35.0); Mean Corpuscular Hemoglobin 26.7 pg (27.0-33.0); Mean Corpuscular Volume 81.7 fL (80.0-98.0); Red Blood Count 4.75 X10*6/uL (4.20-5.50); Red Cell Distribution Width 13.1 % (11.0-16.0); White Blood Count 6.1 X10*3/uL (4.8-10.8)
[2022-10-26 08:17] LABS: Mean Platelet Volume 10.8 fL (9.4-12.3); Platelet Count 208 X10*3/uL (160-400)
[2022-10-26 08:47] LABS: Alanine Aminotransferase 15 U/L (0-31); Albumin Level 3.7 g/dL (3.5-5.0); Alkaline Phosphatase 41 U/L (39-117); Anion Gap 10 (12-20); Aspartate Amino Transferase 17 U/L (5-31); Bilirubin Direct 0.1 mg/dL (0.0-0.5); Bilirubin Total 0.6 mg/dL (0.0-1.0); Blood Urea Nitrogen 12 mg/dL (9-16); Calcium 8.6 mg/dL (8.4-10.2); Carbon Dioxide 25 mmol/L (22-29); Chloride 107 mmol/L (96-108); Estimated Glomerular Filt Rate > 60; Glucose Random 92 mg/dL (60-115); Potassium 3.8 mmol/L (3.3-5.1); Sodium 138 mmol/L (135-145); Total Protein 6.3 g/dL (6.5-8.0)
[2022-10-26 08:54] LABS: Cholesterol 148 mg/dL; HDL Cholesterol 52 mg/dL; LDL Cholesterol Calculated 89 mg/dl; Triglycerides 36 mg/dL
[2022-10-26 09:02] LABS: ~HepC Num1 0.18 S/CO (0.00-0.79); ~Hepatitis C Antibody Nonreactive (Nonreactive)
[2022-10-26 09:08] LABS: TSH reflex Free T4 1.64 uIU/mL (0.32-4.0)
[2022-10-28 14:58] LABS: Hepatitis B Viral DNA Qn - cp NOT DETECTED Log IU/mL (NOT DETECTED); Hepatitis B Viral DNA Qn-IU/mL NOT DETECTED (NOT DETECTED)
== END 2022-10-26 07:33 | disposition home or self-care (01) ==
LOC: HO.LAB 07:32
PROVIDERS: Absent Provider Physician Assistant; PCP Hospitalist; Visit Provider Hospitalist
DX: Z00.00 Encounter for general adult medical examination without abnormal findings (principal); E66.3 Overweight; L20.89 Other atopic dermatitis; L70.0 Acne vulgaris; Z79.899 Other long term (current) drug therapy
CPT/HCPCS: 36415; 80048; 80061; 80076; 84443; 85027; 86803; 87517

== ENCOUNTER → 2022-12-31 13:24 | Outpatient (BNVA) | payer SELFPAY | PROVIDERS: PCP Hospitalist | DX: Z02.83 Encounter for blood-alcohol and blood-drug test (principal) ==

== ENCOUNTER 2023-01-09 03:59 | Outpatient (REF) | payer OTHER, SELFPAY ==
[2023-01-09 04:29] LABS: D Dimer High Sensitivity < 150 NG/ML
[2023-01-09 04:29] LABS: Hematocrit 39.8 % (37.0-47.0); Hemoglobin 13.7 g/dl (12.0-16.0)
[2023-01-09 04:38] LABS: Anion Gap 16 (12-20); Blood Urea Nitrogen 9 mg/dL (9-16); Calcium 9.1 mg/dL (8.4-10.2); Carbon Dioxide 21 mmol/L (22-29); Chloride 107 mmol/L (96-108); Estimated Glomerular Filt Rate > 60; Glucose Random 94 mg/dL (60-115); Potassium 3.6 mmol/L (3.3-5.1); Sodium 140 mmol/L (135-145)
== END 2023-01-09 04:00 | disposition home or self-care (01) ==
LOC: HO.LAB 03:59
PROVIDERS: PCP Hospitalist; Visit Provider Emergency Medicine
DX: L50.0 Allergic urticaria (principal); M79.89 Other specified soft tissue disorders
CPT/HCPCS: 36415; 80048; 85014; 85018; 85379

== ENCOUNTER 2023-01-21 11:48 | Outpatient (REF) | payer OTHER, SELFPAY ==
[2023-01-25 19:23] LABS: IgA 93 mg/dL (47-310); IgG 899 mg/dL (600-1640); IgM 310 mg/dL (50-300)
== END 2023-01-21 11:49 | disposition home or self-care (01) ==
LOC: HO.LAB 11:48
PROVIDERS: Visit Provider Allergy & Immunology
DX: L50.0 Allergic urticaria (principal)
CPT/HCPCS: 36415; 82784; 82785; 86003

== ENCOUNTER 2023-06-29 07:08 | Emergency (ER) | payer OTHER, SELFPAY ==
--- NOTE | ~2023-06-29 | CT_ITS ---
EXAMINATION: CT ABDOMEN AND PELVIS WITH CONTRAST CLINICAL INFORMATION: Right lower abdominal pain. Elevated white blood cell count. COMPARISON: CT abdomen pelvis August 05, 2022 TECHNIQUE: Multidetector volumetric images were obtained from the superior aspect of the liver through the pubic symphysis following administration 85 mL of Omnipaque 350 intravenous contrast. Sagittal and coronal reformatted images were obtained on the technologist's workstation. This CT examination was performed using dose optimization techniques as appropriate, variously including the following: *Automated exposure control *Adjustment of mA and/or kV according to patient size (this includes techniques or standardized protocols for targeted exams where dose is matched to indication/reason for exam; i.e. extremities or head) *Use of iterative reconstruction technique DLP: 474 mGy-cm FINDINGS: Visualized lung bases are well aerated. The liver is normal in size. The gallbladder is normal in appearance. The pancreas, spleen and adrenal glands are unremarkable. Symmetrically enhancing kidneys. No hydronephrosis of either kidney. Normal caliber loops of small and large bowel. Normal appendix. Normal caliber abdominal aorta. No retroperitoneal lymphadenopathy. The bladder is normal in appearance. Unremarkable CT appearance of the uterus. Small amount of free pelvic fluid is likely physiologic. No inguinal lymphadenopathy. No acute osseous abnormality. CT/CT abdomen pelvis w IV con IMPRESSION: No CT evidence for acute abnormality within the abdomen or pelvis. Fleischner guidelines were followed.
[2023-06-29 07:16] VITALS: BP 113/73; PULSE 109; RESP 19; TEMP 36.6; O2SAT 99; BMI 25.5
[2023-06-29 07:43] VITALS: BP 107/55; PULSE 98; RESP 19; TEMP 36.6; O2SAT 99
--- NOTE | 2023-06-29 07:46 | PC.NURSE ---
Pt awake, alert and oriented. breathing even and unlabored, skin clammy. Pt reports RLQ and RUQ ABD pain, 7/10, sharp and radiating to left side. Pt reports pain started around 1AM this morning with multiple episodes of vomiting. Pt denies CP, SOB, diarrhea, fevers. Resting in bed, appears uncomfortable. Provider at bedside.
[2023-06-29 08:05] LABS: MANUAL DIFF FLAG NO
[2023-06-29] MEDS: Pantoprazole Sodium 40 MG/10 ML VIAL IVPUSH (08:07)
[2023-06-29] MEDS: ondansetron HCL 4 MG/2 ML VIAL IVPUSH ×2 (08:07→11:36)
[2023-06-29 08:08] LABS: Appearance Urine Cloudy; Color Urine Yellow; Glucose Urine UA Negative (Negative); Leukocyte Esterase Urine Negative (Negative); Nitrite Urine Negative (Negative); PH >= 9.0 (5.0-9.0); Specific Gravity - Urine 1.025 (1.005-1.025); Urine Blood Negative (Negative); Urine Ketones Negative (Negative); Urine Protein Trace mg/dL (Neg-Trace)
[2023-06-29 08:09] LABS: UPreg QC Valid YES; Urine Pregnancy NEGATIVE (NEGATIVE)
[2023-06-29 08:10] LABS: Basophils Absolute Auto 0.1 X10*3/uL (0.0-0.2); Basophils Percent Auto 0.3 % (0-2); Eosinophils Absolute Auto 0.1 X10*3/uL (0.0-0.4); Eosinophils Percent Auto 0.3 % (0-4); Hematocrit 42.4 % (37.0-47.0); Hemoglobin 14.7 g/dl (12.0-16.0); Imm Gran Abs Auto 0.05 X10*3/uL (0.00-0.03); Imm Gran Pct Auto 0.3 % (0.0-0.4); Lymphocytes Percent Auto 6.2 % (20-40); Mean Corpuscular HGB Conc 34.7 g/dl (31.0-35.0); Mean Corpuscular Hemoglobin 27.9 pg (27.0-33.0); Mean Corpuscular Volume 80.5 fL (80.0-98.0); Mean Platelet Volume 10.4 fL (9.4-12.3); Monocytes Absolute Auto 0.7 X10*3/uL (0.1-1.2); Monocytes Percent Auto 4.8 % (2-11); Neutrophils Absolute Auto 13.5 x10*3/uL (2.0-8.3); Neutrophils Percent Auto 88.1 % (45-73); Platelet Count 231 X10*3/uL (160-400); Red Blood Count 5.27 X10*6/uL (4.20-5.50); Red Cell Distribution Width 12.4 % (11.0-16.0); White Blood Count 15.3 X10*3/uL (4.8-10.8)
[2023-06-29 08:22] LABS: Alanine Aminotransferase 18 U/L (0-31); Albumin Level 4.4 g/dL (3.5-5.0); Alkaline Phosphatase 43 U/L (39-117); Anion Gap 13 (12-20); Aspartate Amino Transferase 19 U/L (5-31); Bilirubin Total 0.9 mg/dL (0.0-1.0); Blood Urea Nitrogen 12 mg/dL (9-16); Calcium 8.6 mg/dL (8.4-10.2); Carbon Dioxide 24 mmol/L (22-29); Chloride 108 mmol/L (96-108); Creatinine Clr Calc Pharmacy 98.1; Estimated Glomerular Filt Rate > 60; Glucose Random 117 mg/dL (60-115); Lipase 26 U/L (8-78); Potassium 3.8 mmol/L (3.3-5.1); Sodium 141 mmol/L (135-145); Total Protein 7.1 g/dL (6.5-8.0)
[2023-06-29] MEDS: 0.9 % Sodium Chloride 1,000 ML 200 ML IVCONT (08:26)
[2023-06-29 08:48] LABS: Influenza A PCR NEGATIVE (Negative); Influenza B PCR NEGATIVE (Negative); Resp Syncy Virus RNA Qual PCR NEGATIVE (Negative); SARS COV2 PCR INHOUSE NEGATIVE (Negative)
[2023-06-29] MEDS: Ketorolac Tromethamine 30 MG/ML VIAL IVPUSH (08:56)
[2023-06-29] MEDS: iohexoL 350 MG/ML 100 ML INFUS..BTL IV (10:05)
[2023-06-29 10:32] VITALS: RESP 16
[2023-06-29 11:35] VITALS: BP 102/53; PULSE 96; RESP 18; TEMP 37.1; O2SAT 98
--- NOTE | 2023-06-29 12:12 | PC.NURSE ---
pt reports improvement in pain, was able to rest for short period.
--- NOTE | 2023-06-29 12:26 | ED_ITS ---
HPI - Abdominal Pain General Chief Complaint: Abdominal Pain Stated Complaint: Abd Pain N V Time Seen by Provider: 06/29/23 07:26 Source: patient Mode of arrival: ambulatory Limitations: no limitations History of Present Illness HPI narrative: patient with epigastric and right upper pain with nausea and vomiting. She awoke early in the morning with vomiting which came back twice MD elicited complaint: abdominal pain Onset (ago): hour(s) Pain Consistency: intermittent Location: epigastric and RUQ Severity: moderate Quality: stabbing Radiation: RUQ and epigastric Associated symptoms: nausea and vomiting Related Data Home Medications Medication Instructions Recorded Confirmed citalopram 10 mg tablet 10 mg PO DAILY 12/27/21 citalopram 20 mg tablet 20 mg PO DAILY 12/27/21 dupilumab 300 mg/2 mL subcutaneous mg subcut 12/27/21 syringe ([employer]) gabapentin 100 mg capsule 100 mg PO TID PRN anxiety 12/27/21 hydroxyzine HCl 10 mg tablet 10 - 20 mg PO DAILY PRN insomnia 07/30/22 triamcinolone acetonide 0.1 % appl topical 07/30/22 topical cream Previous Rx's Medication Instructions Recorded epinephrine 0.3 mg/0.3 mL 0.3 mg (0.3 mL) IM Q4H PRN 07/30/22 injection, auto-injector (EpiPen anaphylaxis 30 days #2 ea 2-Russell) naproxen 500 mg tablet (Naprosyn) 500 mg PO BID #20 tabs 08/05/22 ondansetron 4 mg disintegrating 4 mg PO Q8H 4 days #12 tabs 08/05/22 tablet ondansetron 4 mg disintegrating 4 mg PO Q8H 4 days #12 tabs 06/29/23 tablet pantoprazole 40 mg tablet,delayed 40 mg PO DAILY #20 tabs 06/29/23 release (Protonix) Allergies Allergy/AdvReac Type Severity Reaction Status Date / Time morphine [MORPHINE] Allergy Unknown HIVES Verified 08/13/22 15:57 Review of Systems Review of Systems Yes all other systems are reviewed and are negative Denies Sensory deficit (Neuro) PMFSH Past Medical History Medical History Psoriasis Eczema Anxiety Asthma Migraine headache No known health problems Surgical History Hx of tonsillectomy Family History Family History Mother Asthma Diabetes FHx: uterine cancer Psychiatric problem Father Asthma Diabetes Psychiatric problem Abuse, drug or alcohol Maternal Grandmother Diabetes Hypertension Paternal Grandmother Hypertension Psychiatric problem Clotting disorder Maternal Grandfather Hypertension Family history of throat cancer Paternal Grandfather Diabetes Cancer Brother Asthma Thyroid disorder Social History Social History Alcohol intake: current Alcohol intake frequency: holidays/special occasions only Patient Tobacco Use Status: Never used Tobacco Smoked in Last 30 Days: No e-Cigarette/Vaping Use: Never Used Use of substances other than those prescribed or required for medical reasons: No Advance Directives: No Current occupational status: employed Current occupation: [id number] Current occupational exposures/hazards: Yes Physical Exam ED Vital Signs: Vital Signs - 24 hr 06/29/23 07:16 06/29/23 07:43 06/29/23 10:32 Temperature 98 F 97.8 F Pulse Rate 109 H 98 Respiratory Rate 19 19 16 Blood Pressure 113/73 107/55 L Pulse Oximetry 99 99 Oxygen Delivery Method Room Air Room Air 06/29/23 11:35 Temperature 98.7 F Pulse Rate 96 Respiratory Rate 18 Blood Pressure 102/53 L Pulse Oximetry 98 Oxygen Delivery Method Room Air BMI result Body Mass Index 25.5 Const Other: in mild discomfort General: healthy appearing Nutritional Appearance: average body habitus Orientation/consciousness: oriented to person and patient oriented x3 Limitations: no limitations HENMT Head: Yes normal to inspection Ears: external ears normal General nose exam: Normal external nose present Mouth: Normal oral and palatal mucosa present and oropharynx normal Throat: Yes posterior oropharynx normal Eyes General: appearance normal, both eyes and all related structures Neck Neck: Yes normal visual inspection Chest Chest palpation & inspection: normal inspection of the chest Resp Auscultation: clear to auscultation bilaterally Cardio Jugular venous distension: no JVD Rate: regular rate Rhythm: regular rhythm Heart sounds: S1 normal heart sound present and S2 normal heart sound present GI Inspection: Yes normal to inspection Palpation (GI): Soft to palpation, nontender and No hepatosplenomegaly present Auscultation: normal bowel sounds General: Yes no CVA tenderness Back/Spine/Pelvis Back: no CVA tenderness Skin General skin exam: no rashes or lesions noted Neuro General: oriented to person and patient oriented x3 Cranial nerves: Yes CN's II-XII intact bilaterally Motor exam (neuro): 5/5 motor strength present throughout Sensory Exam: No Sensory deficit (Neuro) Extrem General: Yes normal to inspection Psych Appearance: grossly normal Course Reevaluation(s) Reevaluation #1: Patient with WBC of 15 stating that she is having pain in the RLQ so a CT of abdomen was performed Time: 12:30 Medical Decision Making Differential Diagnosis Differential Diagnoses: The differential diagnosis associated with the presentation includes (biliary colic, cholecystitis, hepatitis, gastritis, appendicitis were all considered) Admission/Observation Consideration of admission/observation: Escalation of care including admission/observation considered (upon arrival admission was considered) Lab Data [facility] Lab Attestation statement: I reviewed the patient's lab results. Elevated WBC count 06/29/23 08:00 06/29/23 08:00 Labs: Lab Results 06/29/23 06/29/23 Range/Units 08:00 08:07 WBC 15.3 H (4.8-10.8) X10*3/uL RBC 5.27 (4.20-5.50) X10*6/uL Hgb 14.7 (12.0-16.0) g/dl Hct 42.4 (37.0-47.0) % MCV 80.5 (80.0-98.0) fL MCH 27.9 (27.0-33.0) pg MCHC 34.7 (31.0-35.0) g/dl RDW 12.4 (11.0-16.0) % Plt Count 231 (160-400) X10*3/uL MPV 10.4 (9.4-12.3) fL Immature Gran % (Auto) 0.3 (0.0-0.4) % Neut % (Auto) 88.1 H (45-73) % Lymph % (Auto) 6.2 L (20-40) % [place] % (Auto) 4.8 (2-11) % Eos % (Auto) 0.3 (0-4) % Baso % (Auto) 0.3 (0-2) % Lymph # (Auto) 1.0 L (1.2-4.9) X10*3/uL [place] # (Auto) 0.7 (0.1-1.2) X10*3/uL Eos # (Auto) 0.1 (0.0-0.4) X10*3/uL Baso # (Auto) 0.1 (0.0-0.2) X10*3/uL Abs Immat Gran (auto) 0.05 H (0.00-0.03) X10*3/uL Absolute Neuts (auto) 13.5 H (2.0-8.3) x10*3/uL Absolute Nucleated RBC 0.000 (0.0-0.012) X10*3/uL Nucleated RBC % (auto) 0.0 (0.0-0.2) /100WBC Sodium 141 (135-145) mmol/L Potassium 3.8 (3.3-5.1) mmol/L Chloride 108 (96-108) mmol/L Carbon Dioxide 24 (22-29) mmol/L Anion Gap 13 (12-20) BUN 12 (9-16) mg/dL Creatinine 0.71 (0.5-1.4) mg/dL Estim Creat Clear Calc 98.1 Estimated GFR > 60 Random Glucose 117 H (60-115) mg/dL Calcium 8.6 (8.4-10.2) mg/dL Total Bilirubin 0.9 (0.0-1.0) mg/dL AST 19 (5-31) U/L ALT 18 (0-31) U/L Alkaline Phosphatase 43 (39-117) U/L Total Protein 7.1 (6.5-8.0) g/dL Albumin 4.4 (3.5-5.0) g/dL Lipase 26 (8-78) U/L Urine Color Yellow Urine Appearance Cloudy Urine pH >= 9.0 (5.0-9.0) Ur Specific [place] 1.025 (1.005-1.025) Urine Protein Trace (Neg-Trace) mg/dL Urine Glucose (UA) Negative (Negative) mg/dL Urine Ketones Negative (Negative) mg/dL Urine Blood Negative (Negative) Urine Nitrite Negative (Negative) Ur Leukocyte Esterase Negative (Negative) Urine Test NEGATIVE (NEGATIVE) Influenza Type A (PCR) NEGATIVE (Negative) Influenza Type B (PCR) NEGATIVE (Negative) RSV RNA Qual (PCR) NEGATIVE (Negative) SARS-CoV-2 RNA (RT-PCR) NEGATIVE (Negative) Independent Interpretation I performed an independent interpretation of an: CT Scan (no appendicitis) Interpretation: Bedside US performed by me showed no gallstones Radiology Impression Discussion of test interpretation with radiology: I have reviewed the radiologist's reading. (and agree) External Record Review External record reviewed: Prior outpatient labs Prescription Management I considered prescription management with: Antibiotic (no evidence of infection will not start antibiotics) Medications Administered Generic Name Dose Route Start Last Admin Trade Name Freq PRN Reason Stop Dose Admin Sodium Chloride 1,000 mls @ 200 mls/hr 06/29/23 08:00 06/29/23 08:26 Ns IVCONT 06/29/23 12:59 200 mls/hr .Q5H ANGELICA Administration Discontinued Medications Generic Name Dose Route Start Last Admin Trade Name Freq PRN Reason Stop Dose Admin Iohexol 100 ml 06/29/23 10:05 06/29/23 10:05 Iohexol 350 Mg/Ml 100 Ml Infus..Btl IV 06/29/23 10:06 85 ml ONCE ONE Administration Ketorolac Tromethamine 30 mg 06/29/23 08:40 06/29/23 08:56 Ketorolac Tromethamine 30 Mg/Ml Vial IVPUSH 06/29/23 08:41 30 mg ONCE ONE Administration Ondansetron HCl 4 mg 06/29/23 07:55 06/29/23 08:07 Ondansetron Hcl 4 Mg/2 Ml Vial IVPUSH 06/29/23 07:56 4 mg ONCE ONE Administration Ondansetron HCl 4 mg 06/29/23 11:24 06/29/23 11:36 Ondansetron Hcl 4 Mg/2 Ml Vial IVPUSH 06/29/23 11:25 4 mg ONCE ONE Administration Pantoprazole Sodium 40 mg 06/29/23 07:55 06/29/23 08:07 Pantoprazole Sodium 40 Mg/10 Ml Vial IVPUSH 06/29/23 07:56 40 mg ONCE ONE Administration Discharge Plan Discharge Clinical Impression: Viral illness, Viral gastroenteritis, Abdominal pain Patient Disposition: Home, Self-Care Instructions: Acute Nausea and Vomiting (ED), Abdominal Pain (ED) Additional Instructions: return for increasing fever or abdominal pain Prescriptions: New pantoprazole [Protonix] 40 mg tablet,delayed release (DR/EC) 40 mg PO DAILY Qty: 20 0RF ondansetron 4 mg tablet,disintegrating 4 mg PO Q8H 4 Days Qty: 12 0RF No Action ondansetron 4 mg tablet,disintegrating 4 mg PO Q8H 4 Days Qty: 12 0RF naproxen [Naprosyn] 500 mg tablet 500 mg PO BID Qty: 20 0RF citalopram 10 mg tablet 10 mg PO DAILY citalopram 20 mg tablet 20 mg PO DAILY Dupixent Syringe 300 mg/2 mL syringe subcut gabapentin 100 mg capsule 100 mg PO TID PRN (Reason: anxiety) hydroxyzine HCl 10 mg tablet 10 - 20 mg PO DAILY PRN (Reason: insomnia) triamcinolone acetonide 0.1 % cream topical epinephrine [EpiPen 2-Russell] 0.3 mg/0.3 mL auto-injector 0.3 mg IM Q4H PRN (Reason: anaphylaxis) 30 Days Qty: 2 3RF
[2023-06-29 13:50] VITALS: BP 113/59; PULSE 108; RESP 20; TEMP 37.1; O2SAT 98
== END 2023-06-29 14:28 | disposition home or self-care (01) ==
PROVIDERS: Emergency Provider Emergency Medicine
DX: A08.4 Viral intestinal infection, unspecified (principal); B34.9 Viral infection, unspecified; R11.2 Nausea with vomiting, unspecified; R10.11 Right upper quadrant pain; Z11.52 Encounter for screening for COVID-19; Z20.822 Contact with and (suspected) exposure to COVID-19; Z79.899 Other long term (current) drug therapy
CPT/HCPCS: 0241U; 36415; 74177; 80053; 81003; 81025; 83690; 85025; 96374; 96375; 96376; 99284; 99285; C9113; J1885; J2405; Q9967

== ENCOUNTER 2023-07-16 06:24 | Outpatient (REF) | payer OTHER, SELFPAY ==
[2023-07-16 06:34] LABS: MANUAL DIFF FLAG NO
[2023-07-16 07:29] LABS: Basophils Absolute Auto 0.1 X10*3/uL (0.0-0.2); Basophils Percent Auto 1.2 % (0-2); Eosinophils Absolute Auto 0.2 X10*3/uL (0.0-0.4); Eosinophils Percent Auto 2.6 % (0-4); Hematocrit 39.1 % (37.0-47.0); Hemoglobin 13.3 g/dl (12.0-16.0); Imm Gran Abs Auto 0.02 X10*3/uL (0.00-0.03); Imm Gran Pct Auto 0.3 % (0.0-0.4); Lymphocytes Absolute Auto 2.7 X10*3/uL (1.2-4.9); Lymphocytes Percent Auto 39.5 % (20-40); Mean Corpuscular Hemoglobin 28.1 pg (27.0-33.0); Mean Corpuscular Volume 82.7 fL (80.0-98.0); Mean Platelet Volume 10.5 fL (9.4-12.3); Monocytes Absolute Auto 0.4 X10*3/uL (0.1-1.2); Monocytes Percent Auto 5.9 % (2-11); Neutrophils Absolute Auto 3.5 x10*3/uL (2.0-8.3); Neutrophils Percent Auto 50.5 % (45-73); Platelet Count 321 X10*3/uL (160-400); Red Blood Count 4.73 X10*6/uL (4.20-5.50); Red Cell Distribution Width 12.5 % (11.0-16.0); White Blood Count 6.9 X10*3/uL (4.8-10.8)
[2023-07-16 08:00] LABS: Alanine Aminotransferase 13 U/L (0-31); Albumin Level 4.2 g/dL (3.5-5.0); Alkaline Phosphatase 39 U/L (39-117); Anion Gap 8 (12-20); Aspartate Amino Transferase 18 U/L (5-31); Bilirubin Direct 0.2 mg/dL (0.0-0.5); Bilirubin Total 0.6 mg/dL (0.0-1.0); Blood Urea Nitrogen 8 mg/dL (9-16); Calcium 8.9 mg/dL (8.4-10.2); Carbon Dioxide 28 mmol/L (22-29); Chloride 108 mmol/L (96-108); Cholesterol 135 mg/dL (<200); Estimated Glomerular Filt Rate > 60; Glucose Random 92 mg/dL (60-115); HDL Cholesterol 53 mg/dL (>40); LDL Cholesterol Calculated 75 mg/dL (<100); Potassium 4.3 mmol/L (3.3-5.1); Sodium 140 mmol/L (135-145); Total Protein 6.6 g/dL (6.5-8.0); Triglycerides 37 mg/dL (<150)
[2023-07-18 21:58] LABS: TS Negative Control Passed; TS Panel A 0; TS Panel B 0; TS Positive Control Passed; TSpotTB Negative (Negative)
== END 2023-07-16 06:25 | disposition home or self-care (01) ==
LOC: HO.LAB 06:24
PROVIDERS: PCP Nurse Practitioner Family; Visit Provider Physician Assistant
DX: Z11.1 Encounter for screening for respiratory tuberculosis (principal); Z79.899 Other long term (current) drug therapy
CPT/HCPCS: 36415; 80048; 80061; 80076; 85025; 86481

== ENCOUNTER 2023-07-23 12:27 | Outpatient (REF) | payer OTHER, SELFPAY ==
--- NOTE | ~2023-07-23 | XR_ITS ---
EXAMINATION: XR CHEST CLINICAL INFORMATION: Bronchitis COMPARISON: None available. TECHNIQUE: 2 views of the chest were obtained. FINDINGS: vascularity. LUNGS: Lungs are clear. No pneumothorax is seen. BONES: Bony skeleton is intact. XR/XR chest 2V IMPRESSION: Normal chest x-ray.
== END 2023-07-23 12:28 | disposition home or self-care (01) ==
LOC: HO.XRAY 12:27
PROVIDERS: PCP Nurse Practitioner Family; Visit Provider Physician Assistant
DX: J20.9 Acute bronchitis, unspecified (principal)
CPT/HCPCS: 71046

== ENCOUNTER → 2023-12-02 08:53 | Outpatient (BNVA) | payer SELFPAY | PROVIDERS: PCP Nurse Practitioner Family | DX: Z02.83 Encounter for blood-alcohol and blood-drug test (principal) ==

== ENCOUNTER 2024-03-09 12:33 | Outpatient (REF) | payer OTHER, SELFPAY ==
--- NOTE | ~2024-03-09 | XR_ITS ---
EXAMINATION: XR FOOT, LEFT CLINICAL INFORMATION: Left foot injury and pain COMPARISON: None available. TECHNIQUE: AP, lateral, and oblique views of the left foot. FINDINGS: The bones and soft tissues are normal. No fracture. Alignment is anatomic. Joint spaces are maintained. XR/XR foot LT min 3V IMPRESSION: Normal left foot. Electronically signed by: Edward Thomason MD 03/09/2024 04:33 PM EDT
== END 2024-03-09 12:34 | disposition home or self-care (01) ==
LOC: HO.XRAY 12:33
PROVIDERS: Visit Provider Physician Assistant
DX: M79.672 Pain in left foot (principal)
CPT/HCPCS: 73630

== ENCOUNTER 2024-03-14 09:07 | Outpatient (AMB) | payer OTHER, SELFPAY ==
[2024-03-14 09:09] VITALS: BP 110/68; PULSE 75; O2SAT 98; BMI 30.4
--- NOTE | 2024-03-14 09:09 | MHC.PC.OV ---
Vital Signs 03/14/24 09:09 Height 5 ft 1 in Weight 161 lb 0.4 oz BMI 30.4 BP 110/68 Blood Pressure Location Lt brachial Position Sitting Pulse 75 Pulse Source Pulse Oximeter Pulse Oximetry (%) 98 Oxygen Delivery Method Room Air Intake Visit Reasons: JENNY from [place] Allergies morphine [MORPHINE] Allergy (Unknown, Verified 03/14/24 09:24) HIVES grapes Allergy (Intermediate, Uncoded 03/14/24 09:24) Anaphylaxis Medication List - Last Reconciled 03/14/24 by Adele Rivas PA-C adapalene 0.1% 1 appl topical DAILY citalopram 10 mg PO DAILY citalopram 20 mg PO DAILY dapsone 5% 1 appl topical BID epinephrine (EpiPen 2-Russell) 0.3 mg (0.3 mL) IM Q4H PRN 30 days gabapentin 100 mg PO TID PRN hydroxyzine HCl 10 - 20 mg PO DAILY PRN naproxen (Naprosyn) 500 mg PO BID ondansetron 4 mg PO Q8H 4 days upadacitinib ER (Rinvoq) 30 mg PO DAILY Tobacco use date assessed: 03/14/24 Dental Screening Dental Screen Date: 03/14/24 Did you have a dental visit in the last 12 months?: Yes Did you have a dental problem in the last 6 months where you did not have access to dental care?: No Was dental information given to patient?: Patient has dentist HPI JENNY from [place] HPI Details 28-year-old female with past medical history of anxiety, depression coming to the office for the 1st time. Patient follows with [facility] and is on Rinvoq. She follows with Salma Peng for psych. Patient does mention she had atraumatic foot pain that began last Wednesday and denies any injury to the foot, falls, or MVA. She has pain with touch down weight bearing and has been wearing a boot for comfort. FOR[facility]LY [facility] Medical History (Updated 03/14/24 @ 10:26 by Adele Rivas PA-C) Psoriasis Eczema Anxiety Asthma Migraine headache No known health problems Surgical History (Updated 03/14/24 @ 09:28 by Adele Rivas PA-C) [place] teeth removed Hx of tonsillectomy Family History (Updated 03/14/24 @ 09:29 by Adele Rivas PA-C) Mother Asthma Diabetes FHx: uterine cancer Psychiatric problem Father Asthma Diabetes Psychiatric problem Abuse, drug or alcohol Maternal Grandmother Diabetes Hypertension Paternal Grandmother Hypertension Psychiatric problem Clotting disorder Maternal Grandfather Hypertension Family history of throat cancer Paternal Grandfather Diabetes Cancer Brother Asthma Thyroid disorder Maternal Aunt Stomach cancer Social History Housing: Apartment Alcohol intake: current Alcohol intake frequency: holidays/special occasions only Patient Tobacco Use Status: Never used Tobacco e-Cigarette/Vaping Use: Never Used service: No Current occupational status: employed Current occupation: [employer] Current occupational exposures/hazards: Yes Cognitive needs: No Hearing needs: No Vision needs: No Female Reproductive History Menstrual control method: implanted Questionnaire PHQ-9 Over the last 2 weeks, how often have you been bothered by any of the following problems? 1. Little interest or pleasure in doing things: not at all 2. Feeling down, depressed, or hopeless: not at all 3. Trouble falling or staying asleep, or sleeping too much: not at all 4. Feeling tired or having little energy: not at all 5. Poor appetite or overeating: not at all 6. Feeling bad about yourself - or that you are a failure or have let yourself or your family down: not at all 7. Trouble concentrating on things, such as reading the newspaper or watching television: not at all 8. Moving or speaking so slowly that other people could have noticed. Or the opposite - being so fidgety or restless that you have been moving around a lot more than usual: not at all 9. Thoughts that you would be better off or of hurting yourself in some way: not at all Total score: 0 Depression Screening Interpretation: Positive Depression Screening Follow-up: Existing condition, In treatment and New Medication prescribed Depression Screening Done: Yes 23537 - PHQ-9 Billing: Yes Source: Developed by Drs. Colton Jonas, Kayce Cardoza, Alexis Toscano and colleagues, with an educational alexandra from [employer]. Thrive Questionnaire Date Thrive assessed: 07/30/22 AUDIT C Alcohol Use Questionnaire (AUDIT-C) 1. How often do you have a drink containing alcohol?: 2-4 times a month 2. How many drinks containing alcohol do you have on a typical day when you are drinking?: 1 or 2 3. How often do you have six or more drinks on one occasion?: Never Total Score: 2 ASHLYN-7 AMB Questionnaire ASHLYN-7 Date ASHLYN - 7 assessed: 03/14/24 Source: Developed by Drs. Colton Jonas, Kayce Cardoza, Alexis Toscano and colleagues, with an educational alexandra from [employer]. ASHLYN-7 Assessment Billing ASHLYN-7 Assessment Tool: ASHLYN-7 Assessment 35063 Review of Systems Const Denies body aches, Denies fatigue, Denies fever(s), Denies frequent falls, Denies headache(s) and Denies weakness Eyes Reports no additional complaints and Denies change in vision ENT Denies dysphagia, Denies dizziness, Denies facial pain, Denies headache(s), Denies nasal congestion and Denies odynophagia Card Denies chest pain, Denies syncope, Denies irregular heart rhythm, Denies leg edema, Denies lightheadedness and Denies dyspnea Resp Denies cough and Denies dyspnea GI Denies abdominal pain, Denies constipation, Denies dysphagia, Reports dyspepsia, Reports heartburn, Denies diarrhea, Denies nausea, Denies odynophagia and Denies vomiting Denies urinary frequency, Denies dysuria, Denies urinary hesitancy and Denies urinary urgency Musc Details: left foot pain and swelling Denies back pain and Denies myalgias Skin/Breast Reports system reviewed and no additional complaints, except as documented Neuro Denies dizziness, Denies syncope, Denies frequent falls, Denies headache(s) and Denies weakness Psych Reports no additional complaints Endo Denies fatigue Physical exam (Primary Care) BMI result Body Mass Index 30.4 Tobacco/Smoking Status: Tobacco use Status Tobacco use date assessed 07/30/22 08/13/22 15:52 Patient Tobacco Use Status Never used Tobacco 08/13/22 15:52 e-Cigarette/Vaping Use Never Used 08/13/22 15:52 Depression Screening Interpretation: Positive Depression Screening Follow-up: Existing condition, In treatment and New Medication prescribed Thrive Assessment: Date of Thrive Assessment Date Thrive assessed 07/30/22 08/13/22 15:52 Const General: cooperative, healthy appearing, comfortable and no acute distress Orientation/consciousness: patient oriented x3 HENMT Head: Yes normocephalic Ears: hearing grossly normal bilaterally, external ears normal, TM's normal bilaterally and EAC's normal General nose exam: Normal external nose present Face and sinus: Yes normal facial exam and Yes sinuses nontender Mouth: Normal oral and palatal mucosa present and tongue normal Throat: Yes posterior oropharynx normal Eyes General: appearance normal, both eyes and all related structures Conjunctivae: conjunctivae normal Pupils: Equal, round and reactive pupils present EOM: EOMs intact bilaterally and No Nystagmus present Neck Neck: Yes normal visual inspection, Yes full ROM and Yes no lymphadenopathy Chest Chest palpation & inspection: normal inspection of the chest Resp Effort & Inspection: normal respiratory effort Auscultation: clear to auscultation bilaterally, no crackles, no rales, no rhonchi, no wheezes and breath sounds present Cardio Rate: regular rate Rhythm: regular rhythm Peripheral pulses: radial pulses present and dorsalis pedis present GI Inspection: Yes normal to inspection and No Abdominal wall edema Palpation (GI): Soft to palpation, not firm and nontender Auscultation: normal bowel sounds Rectal Exam - Female: deferred General: Yes no CVA tenderness Back/Spine/Pelvis Back: no CVA tenderness Skin General skin exam: no rashes or lesions noted Neuro General: patient oriented x3 Cranial nerves: Yes Equal, round and reactive pupils present, Yes Midline tongue present, Yes Ability to bilaterally elevate shoulders present and No Nystagmus present Gait exam (Neuro): Normal gait present Extrem Other: dorsal aspect of the left foot with mild swelling and bruising. Pain to palpation of distal aspect of the left foot with intact sensation and pulses. General: Yes normal to inspection, Yes full ROM, No no pedal edema and No edema Psych Speech and movement: Normal speech and movement present Affect: normal affect Insight: Good insight present (Psych) Judgement: Good judgement present (Psych) Coding Level of Care Code Est Pt Level 3 (40294) Est Pt Prev Care 18-39y(86035) Diagnoses Eczema L30.9 PTSD (post-traumatic stress disorder) F43.10 Asthma J45.909 Anxiety F41.9 Left foot pain M79.672 Cervical cancer screening Z12.4 Additional Codes ASHLYN-7 Assessment Billing - ASHLYN-7 Assessment Tool: ASHLYN-7 Assessment 19987 ([id number]) Assessment & Plan Assessment & Plan (1) Eczema: Code(s): L30.9 - Dermatitis, unspecified Category: Medical Plan: Continue to follow with [facility] and continue on Rinvoq. (2) PTSD (post-traumatic stress disorder): Comment: Salma peng for psych Code(s): F43.10 - Post-traumatic stress disorder, unspecified Category: Medical Plan: Continue on current medication regimen and continue to follow with psychiatrist. (3) Asthma: Code(s): J45.909 - Unspecified asthma, uncomplicated Category: Medical Plan: Asthma currently controlled on present medications. Continue on albuterol as needed. Avoid triggers such as allergies. (4) Anxiety: Code(s): F41.9 - Anxiety disorder, unspecified Category: Medical Plan: Continue on current medication regimen and continue to follow with psychiatrist. (5) Left foot pain: Code(s): M79.672 - Pain in left foot Category: Medical Plan: Left foot pain with swelling and bruising on the dorsal aspect of the foot. Advised patient to use the walking boot for comfort as needed but be sure to stretch the foot intermittently to avoid stiffness. Referral placed to Orthopedics. (6) Cervical cancer screening: Code(s): Z12.4 - Encounter for screening for malignant neoplasm of cervix Category: Medical Plan: Refer to gynecology Plan This note was constructed using voice recognition software. While every effort has been made to ensure accuracy and industrial health engineer, still areas may have been included sometimes these areas may affect the content or meeting of the given symptoms. Total time spent caring for the patient today was 30 minutes. This includes time spent before the visit reviewing the chart, time spent during the visit, and time spent after the visit and documentation. Orders: Referrals SAMPLE PROCESSOR Referral Z12.4 - Encounter for screening for malignant neoplasm of cervix Orthopedics Referral M79.672 - Pain in left foot Medications: New albuterol sulfate 90 mcg/actuation 1 inh inhalation QID 6.7 grams 0RF omeprazole 20 mg PO DAILY 30 caps 2RF Refilled epinephrine (EpiPen 2-Russell) 0.3 mg (0.3 mL) IM Q4H 30 days PRN 2 ea 3RF anaphylaxis Z87.892 - Personal history of anaphylaxis
== END 2024-03-14 09:49 | disposition home or self-care (01) ==
LOC: HO.HMCH 09:07
PROVIDERS: PCP Hospitalist
DX: Z00.00 Encounter for general adult medical examination without abnormal findings (principal); J45.909 Unspecified asthma, uncomplicated; L30.9 Dermatitis, unspecified; F43.10 Post-traumatic stress disorder, unspecified; F41.9 Anxiety disorder, unspecified; M79.672 Pain in left foot

== ENCOUNTER → 2024-03-14 09:07 | Outpatient (BNVA) | payer SELFPAY | PROVIDERS: PCP Hospitalist | DX: L30.9 Dermatitis, unspecified (principal); F43.10 Post-traumatic stress disorder, unspecified; J45.909 Unspecified asthma, uncomplicated; F41.9 Anxiety disorder, unspecified; M79.672 Pain in left foot | CPT/HCPCS: 96127 ==

== ENCOUNTER 2024-04-13 19:05 | Emergency (ER) | payer OTHER, SELFPAY ==
[2024-04-13 19:11] VITALS: BP 122/63; PULSE 91; RESP 16; TEMP 36.8; O2SAT 98; BMI 30.4
--- NOTE | 2024-04-13 19:14 | ED_ITS ---
HPI - URI/Sore Throat General Chief Complaint: Upper Respiratory Symptoms Stated Complaint: sore throat,cough Time Seen by Provider: 04/13/24 19:12 Source: patient Mode of arrival: ambulatory Limitations: no limitations History of Present Illness ED Provider: EULALIO BAILON PA-C HPI Narrative: 28 year old female presents to the ED today for evaluation of sore throat and cough x4 days. Admits to noticing red dots to her hard pallet at onset of symptoms. Denies fever, chills, sputum production, N/V. Vaccinations UTD. No other concerns. 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 Related Data Home Medications ?Medication ?Instructions ?Recorded ?Confirmed citalopram 10 mg tablet 10 mg PO DAILY 12/27/21 03/14/24 citalopram 20 mg tablet 20 mg PO DAILY 12/27/21 03/14/24 gabapentin 100 mg capsule 100 mg PO TID PRN anxiety 12/27/21 03/14/24 hydroxyzine HCl 10 mg tablet 10 - 20 mg PO DAILY PRN insomnia 07/30/22 03/14/24 adapalene 0.1 % topical gel 1 appl topical DAILY 03/14/24 03/14/24 dapsone 5 % topical gel 1 appl topical BID 03/14/24 03/14/24 upadacitinib 30 mg tablet,extended 30 mg PO DAILY 03/14/24 03/14/24 release 24 hr (Rinvoq) Previous Rx's ?Medication ?Instructions ?Recorded naproxen 500 mg tablet (Naprosyn) 500 mg PO BID #20 tabs 08/05/22 ondansetron 4 mg disintegrating 4 mg PO Q8H 4 days #12 tabs 06/29/23 tablet albuterol sulfate 90 mcg/actuation 1 inh inhalation QID #6.7 grams 03/14/24 aerosol inhaler epinephrine 0.3 mg/0.3 mL 0.3 mg (0.3 mL) IM Q4H PRN 03/14/24 injection, auto-injector (EpiPen anaphylaxis 30 days #2 ea 2-Russell) omeprazole 20 mg capsule,delayed 20 mg PO DAILY #30 caps 03/14/24 release Allergies Allergy/AdvReac Type Severity Reaction Status Date / Time morphine [MORPHINE] Allergy Unknown HIVES Verified 04/13/24 19:12 grapes Allergy Intermediate Anaphylaxis Uncoded 04/13/24 19:12 Review of Systems Review of Systems: Constitutional: No fever, chills, fatigue, night sweats, weight changes ENT/Mouth: No ear pain, hearing loss, nasal congestion, sinus pain, rhinorrhea, +sore throat Eyes: No eye pain, swelling, redness, vision changes, discharge Cardio: No chest pain, palpitations, GARCIA, orthopnea, peripheral edema Pulm: No SOB, sputum, wheezing, dyspnea, hemoptysis, +cough GI: No nausea, vomiting, hematemesis, abdominal pain, diarrhea, constipation, hematochezia, melena : No irregular bleeding, dysuria, frequency, urgency, hesitancy, hematuria, flank pain, urinary flow changes, urinary incontinence or retention MSK: No back pain, neck pain, joint pain, myalgias Skin: No lesions, rashes Neuro: No weakness, numbness, paresthesias, LOC, dizziness, headache Psych: No anxiety/panic, depression, SI/HI, AH/VH All other systems reviewed and are negative. [facility] Past Medical History Attestation statement: The following information was validated with the patient. Source: old records reviewed and nursing notes reviewed Medical History Psoriasis Eczema Anxiety Asthma Migraine headache No known health problems Surgical History [place] teeth removed Hx of tonsillectomy Family History Family History Mother Asthma Diabetes FHx: uterine cancer Psychiatric problem Father Asthma Diabetes Psychiatric problem Abuse, drug or alcohol Maternal Grandmother Diabetes Hypertension Paternal Grandmother Hypertension Psychiatric problem Clotting disorder Maternal Grandfather Hypertension Family history of throat cancer Paternal Grandfather Diabetes Cancer Brother Asthma Thyroid disorder Maternal Aunt Stomach cancer Social History Social History Housing: Apartment Alcohol intake: current Alcohol intake frequency: holidays/special occasions only Patient Tobacco Use Status: Never used Tobacco e-Cigarette/Vaping Use: Never Used Advance Directives: No Advance Directives Information Provided: No Do you have a plan to hurt others: No Plan service: No Current occupational status: employed Current occupation: [employer] Current occupational exposures/hazards: Yes Cognitive needs: No Hearing needs: No Vision needs: No Physical Exam 2 Vital Signs: Vital Signs: Last Vital Signs Temp 98.2 F 04/13/24 19:11 Pulse 91 04/13/24 19:11 Resp 16 04/13/24 19:11 BP 122/63 04/13/24 19:11 Pulse Ox 98 04/13/24 19:11 O2 Del Method Room Air 04/13/24 19:11 BMI result Body Mass Index 30.4 Vital signs stable, afebrile General: Well appearing, in no acute distress. Skin: Warm, dry, intact. No rashes or lesions. Head: Normocephalic, atraumatic. EENT: Hearing is intact b/l. Conjunctiva clear. PERRLA. EOM intact. Moist mucous membranes.? Posterior oropharynx erythematous without edema. No tonsillar exudates. No peritonsillar masses. There are multiple areas of petechiae noted to hard palate. Uvula midline. Controlling secretions and speaking complete sentences. Neck: Supple without LAD Cardiac: Chest wall symmetric. RRR Lungs: Normal respiratory effort without accessory muscle use. CTA bilaterally? Psych: Appropriate mood and affect. Responds appropriately to questions. Course Course Course Narrative: 1917 -- Patient states she would only like to be tested at this time. Strep swabs pending. 1938 -- negative for strep throat. patient informed of results. plan for symptomatic treatment. Patient has remained stable throughout ED visit today. Discussed worrisome signs and symptoms and when to return to the ED. All questions answered at this time. Patient is agreeable with disposition and stable for discharge. Medical Decision Making Medical Decision Making MDM Narrative: 28 year old female presents to the ED today for evaluation of sore throat and cough x4 days. Vital signs stable. Afebrile. she is nontoxic appearinga and in NAD. On exam, posterior oropharynx erythematous without edema. No tonsillar exudates. No peritonsillar masses. There are multiple areas of petechiae noted to hard palate. Uvula midline. Controlling secretions and speaking complete sentences. dry cough. no respiratory distress. no tripoding. lungs clear. Differential diagnosis includes strep, viral syndrome Plan for strep swabs Differential Diagnosis Differential Diagnoses: The differential diagnosis associated with the presentation includes As above Admission/Observation Not indicated Lab Data Labs: Lab Results 04/13/24 Range/Units 19:15 S. pyogenes GrpA ELLA Negative (Negative) Prescription Management I considered prescription management with: Pain Medication and Antibiotic Social Determinants Patient?s care significantly limited by Social Determinants of Health including: Other Social Determinant of Health Critical Care Time Critical Care Time Critical Care Time: No Discharge Plan Discharge Clinical Impression: Pharyngitis Patient Disposition: Home, Self-Care Instructions: Pharyngitis (ED), Upper Respiratory Infection (ED) Additional Instructions: You tested negative for strep throat. You do not wish to be tested for covid/ flu/ rsv. You likely have a pharyngitis. This is most often caused by a virus and does not warrant treatment with antibiotics. Take tylenol/ motrin at home for pain/ fevers. Follow up with PCP. Return with new or worsening symptoms. In the case of an emergency call 911, Prescriptions: No Action naproxen [Naprosyn] 500 mg tablet 500 mg PO BID Qty: 20 0RF ondansetron 4 mg tablet,disintegrating 4 mg PO Q8H 4 Days Qty: 12 0RF citalopram 10 mg tablet 10 mg PO DAILY citalopram 20 mg tablet 20 mg PO DAILY gabapentin 100 mg capsule 100 mg PO TID PRN (Reason: anxiety) hydroxyzine HCl 10 mg tablet 10 - 20 mg PO DAILY PRN (Reason: insomnia) Rinvoq 30 mg tablet extended release 24 hr 30 mg PO DAILY dapsone 5 % gel 1 appl topical BID Rx Instructions: rub in gently and completely adapalene 0.1 % gel 1 appl topical DAILY albuterol sulfate 90 mcg/actuation HFA aerosol inhaler 1 inh inhalation QID Qty: 6.7 0RF epinephrine [EpiPen 2-Russell] 0.3 mg/0.3 mL auto-injector 0.3 mg IM Q4H PRN (Reason: anaphylaxis) 30 Days Qty: 2 3RF omeprazole 20 mg capsule,delayed release(DR/EC) 20 mg PO DAILY Qty: 30 2RF Referrals: Adele Rivas PA-C [Primary Care Provider] - Discharge Date/Time: 04/13/24 19:40 Print Language: Icelandic
[2024-04-13 19:27] LABS: IDNOW Serial# 58CA691E; Strep A Nucleic Acid Negative (Negative)
[2024-04-13 19:40] VITALS: BP 122/63; PULSE 91; RESP 16; TEMP 36.8; O2SAT 98
== END 2024-04-13 19:40 | disposition home or self-care (01) ==
PROVIDERS: Physician Assistant Medical; Emergency Provider Emergency Medicine
DX: J02.9 Acute pharyngitis, unspecified (principal); R05.9 Cough, unspecified; Z79.899 Other long term (current) drug therapy
CPT/HCPCS: 87651; 99282; 99283

== ENCOUNTER → 2024-05-09 13:17 | Outpatient (BNVA) | payer OTHER, SELFPAY | DX: Z13.89 Encounter for screening for other disorder (principal) | CPT/HCPCS: 86481; 99211 ==

== ENCOUNTER 2024-05-28 12:14 | Emergency (ER) | payer OTHER, SELFPAY ==
--- NOTE | ~2024-05-28 | CT_ITS ---
CLINICAL HISTORY: Diffuse abdominal pain, vomiting. CT ABDOMEN AND PELVIS WITHOUT CONTRAST Comparison: CT/REG/SR - CT ABDOMEN PELVIS W IV CON - 06/29/23 09:56 EST Findings: The lung bases are clear. No hydronephrosis or significant perinephric edema. No renal or ureteral calculus. Remaining unenhanced solid organs are unremarkable. No large calcified gallstone. No AAA. No bowel obstruction, pneumoperitoneum, or pneumatosis. Mild fluid distention of multiple small bowel loops with no abrupt transition point. No significant mesenteric or paracolic edema. Small fat containing umbilical hernia. The appendix is identified. No acute appendicitis. Unremarkable CT appearance of the uterus and ovaries. No free fluid. Nondistended urinary bladder. The bones are intact. IMPRESSION: 1. Very mild small bowel ileus pattern. 2. No obstructive or acute inflammatory changes in the gastrointestinal and genitourinary tracts. 3. No urolithiasis. This document has been electronically signed by: India Castellano DO on 05/28/2024 15:09:16
[2024-05-28 12:29] VITALS: BP 113/61; PULSE 120
[2024-05-28 12:41] VITALS: BP 126/60; PULSE 109; RESP 20; TEMP 36.5; O2SAT 100; BMI 29.3
--- NOTE | 2024-05-28 13:00 | ED_ITS ---
HPI - General Adult General Chief complaint: General Medical Stated complaint: NAUSEA HEADACHE Time Seen by Provider: 05/28/24 12:49 Source: patient, family (Significant other) and EMS Mode of arrival: EMS Limitations: no limitations History of Present Illness ED Provider: DR. Enrique HPI narrative: 28-year-old female brought in by ambulance for evaluation of abdominal pain. 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 Abdominal pain is a mid abdominal pain with no radiation, associated with nausea and vomiting, patient called her significant other to come and help her found her diaphoretic and pale mumbling words call 911. Patient with known history of anxiety without hyperventilation syndrome. Related Data Home Medications ?Medication ?Instructions ?Recorded ?Confirmed citalopram 10 mg tablet 10 mg PO DAILY 12/27/21 03/14/24 citalopram 20 mg tablet 20 mg PO DAILY 12/27/21 03/14/24 gabapentin 100 mg capsule 100 mg PO TID PRN anxiety 12/27/21 03/14/24 hydroxyzine HCl 10 mg tablet 10 - 20 mg PO DAILY PRN insomnia 07/30/22 03/14/24 adapalene 0.1 % topical gel 1 appl topical DAILY 03/14/24 03/14/24 dapsone 5 % topical gel 1 appl topical BID 03/14/24 03/14/24 upadacitinib 30 mg tablet,extended 30 mg PO DAILY 03/14/24 03/14/24 release 24 hr (Rinvoq) Previous Rx's ?Medication ?Instructions ?Recorded naproxen 500 mg tablet (Naprosyn) 500 mg PO BID #20 tabs 08/05/22 ondansetron 4 mg disintegrating 4 mg PO Q8H 4 days #12 tabs 06/29/23 tablet albuterol sulfate 90 mcg/actuation 1 inh inhalation QID #6.7 grams 03/14/24 aerosol inhaler epinephrine 0.3 mg/0.3 mL 0.3 mg (0.3 mL) IM Q4H PRN 03/14/24 injection, auto-injector (EpiPen anaphylaxis 30 days #2 ea 2-Russell) omeprazole 20 mg capsule,delayed 20 mg PO DAILY #30 caps 11/05/24 release amoxicillin 875 mg-potassium 1 tab PO BID 10 days #20 tabs 05/08/24 clavulanate 125 mg tablet Allergies Allergy/AdvReac Type Severity Reaction Status Date / Time morphine [MORPHINE] Allergy Unknown HIVES Verified 05/28/24 12:42 grapes Allergy Intermediate Anaphylaxis Uncoded 05/28/24 12:42 Review of Systems 2 Review of Systems: All other systems are reviewed and are negative Constitutional: Reports as per HPI and Reports no additional constitutional complaints Eyes: Reports as per HPI and Reports no additional eye complaints Reports system reviewed and no additional complaints, except as documented Cardiovascular: Reports as per HPI and Reports no additional cardiovascular complaints Respiratory: Reports as per HPI and Reports no additional respiratory complaints Gastrointestinal: Reports as per HPI and Reports no additional gastrointestinal complaints Genitourinary: Reports no additional female genitourinary complaints Musculoskeletal: Reports no additional musculoskeletal complaints Skin/Breast: Reports system reviewed and no additional complaints, except as docu Psychiatric: Reports no additional psychiatric complaints Endocrine: Reports no additional endocrine complaints Hematologic/Lymphatic: Reports no additional hematologic/lymphatic complaints Allergic/Immunologic: Reports no additional allergic/immunologic complaints Reports system reviewed and no additional complaints, except as documented and Reports Abnormal speech present [facility] Past Medical History Medical History Psoriasis Eczema Anxiety Asthma Migraine headache No known health problems Surgical History [place] teeth removed Hx of tonsillectomy Family History Family History Mother Asthma Diabetes FHx: uterine cancer Psychiatric problem Father Asthma Diabetes Psychiatric problem Abuse, drug or alcohol Maternal Grandmother Diabetes Hypertension Paternal Grandmother Hypertension Psychiatric problem Clotting disorder Maternal Grandfather Hypertension Family history of throat cancer Paternal Grandfather Diabetes Cancer Brother Asthma Thyroid disorder Maternal Aunt Stomach cancer Social History Social History Housing: Apartment Alcohol intake: current Alcohol intake frequency: holidays/special occasions only Patient Tobacco Use Status: Never used Tobacco e-Cigarette/Vaping Use: Never Used Advance Directives: No Advance Directives Information Provided: Yes service: No Current occupational status: employed Current occupation: [employer] Current occupational exposures/hazards: Yes Cognitive needs: No Hearing needs: No Vision needs: No Physical Exam ED Vital Signs: Vital Signs - 24 hr 05/28/24 12:41 Temperature 97.7 F Pulse Rate 109 H Respiratory Rate 20 Blood Pressure 126/60 Pulse Oximetry 100 Oxygen Delivery Method Room Air BMI result Body Mass Index 29.3 Vital signs have been reviewed and appear to be correct. Blood pressure elevated. Heart rate elevated. Respiratory rate normal. Temperature normal. Oxygen saturation normal. Appearance: Alert. Oriented X3. No acute distress. Head: Normal external exam. Normocephalic. Atraumatic. No Lora signs noted. No raccoon eyes noted Eyes: PERRLA. EOMI. Conjunctiva and sclera normal. Eyelids normal. ENT: TM's Normal. Pharynx normal. Uvula midline. Moist mucous membranes. No trismus noted. No drooling noted. No muffled voice noted. Neck: Normal inspection. Neck supple. FROM. No adenopathy. Thyroid Normal. No meningeal signs. No neck mass noted. CVS: Normal heart rate and rhythm. Heart sound normal. No murmurs noted. Pulses normal throughout. Respiratory: No respiratory distress. Painless inspiration. Breath sounds normal. No wheezes/rales/rhonchi noted. Chest nontender. No accessory muscle usage noted or decreased air movement noted. Abdomen: Soft and nontender. Bowel sounds normal in all 4 quadrants. No distention noted. No organomegaly noted. No visible injury noted. Back: No CVA tenderness. Full range of motion noted. Skin: Skin warm and dry. Normal skin color. Normal skin turgor. No rashes/lesions/lacerations noted. Extremities: Stiffness of bilateral metacarpophalangeal joints, mild tenderness, neurovascularly intact. Neuro: Oriented X 3. Cranial nerve exam: II-XII are grossly intact No motor deficit. No sensory deficit. Reflexes normal. Course Reevaluation(s) Reevaluation #1: Improvement of symptoms, no nausea, no vomiting, no more hand stiffness or hyperventilation, patient is relaxed. Unremarkable workup today. Unremarkable CT of the abdomen and pelvis. Will discharge the patient to take 1 day off. Time: 15:17 Medications Administered Discontinued Medications Generic Name Dose Route Start Last Admin Trade Name Freq PRN Reason Stop Dose Admin Sodium Chloride 1,000 mls @ 999 mls/hr 01/19/25 13:00 05/28/24 13:59 Ns IV 05/28/24 14:00 Infused .Q1H1M ONE Infusion Ketorolac Tromethamine 15 mg 05/28/24 12:59 05/28/24 13:07 Ketorolac Tromethamine 15 Mg/Ml Vial IVPUSH 05/28/24 13:00 15 mg ONCE ONE Administration Lorazepam 1 mg 05/28/24 12:55 05/28/24 13:07 Lorazepam 2 Mg/Ml Vial IVPUSH 05/28/24 12:56 1 mg STAT STA Administration Ondansetron HCl 4 mg 05/28/24 12:58 05/28/24 13:07 Ondansetron Hcl 4 Mg/2 Ml Vial IVPUSH 05/28/24 12:59 4 mg ONCE ONE Administration Medical Decision Making Differential Diagnosis Differential Diagnoses: The differential diagnosis associated with the presentation includes (Small-bowel obstruction, acute appendicitis, acute colitis, acute diverticulitis, acute pancreatitis, acute cholecystitis, pyelonephritis, kidney stone, UTI, , electrolyte derangement, severe anemia.) Admission/Observation Consideration of admission/observation: Escalation of care including admission/observation considered Lab Data MDM Lab Attestation statement: I reviewed the patient's lab results. 05/28/24 12:55 05/28/24 12:55 Labs: Lab Results 05/28/24 05/28/24 05/28/24 Range/Units 12:55 14:05 14:30 WBC 11.6 H (4.8-10.8) X10*3/uL RBC 4.74 (4.20-5.50) X10*6/uL Hgb 14.1 (12.0-16.0) g/dl Hct 40.2 (37.0-47.0) % MCV 84.8 (80.0-98.0) fL MCH 29.7 (27.0-33.0) pg MCHC 35.1 H (31.0-35.0) g/dl RDW 11.9 (11.0-16.0) % Plt Count 251 (160-400) X10*3/uL MPV 10.7 (9.4-12.3) fL Immature Gran % (Auto) 0.5 H (0.0-0.4) % Neut % (Auto) 85.1 H (45-73) % Lymph % (Auto) 7.4 L (20-40) % [place] % (Auto) 5.8 (2-11) % Eos % (Auto) 0.8 (0-4) % Baso % (Auto) 0.4 (0-2) % Lymph # (Auto) 0.9 L (1.2-4.9) X10*3/uL [place] # (Auto) 0.7 (0.1-1.2) X10*3/uL Eos # (Auto) 0.1 (0.0-0.4) X10*3/uL Baso # (Auto) 0.1 (0.0-0.2) X10*3/uL Abs Immat Gran (auto) 0.06 H (0.00-0.03) X10*3/uL Absolute Neuts (auto) 9.8 H (2.0-8.3) x10*3/uL Absolute Nucleated RBC 0.000 (0.0-0.012) X10*3/uL Nucleated RBC % (auto) 0.0 (0.0-0.2) /100WBC Sodium 139 (135-145) mmol/L Potassium 4.2 (3.3-5.1) mmol/L Chloride 107 (96-108) mmol/L Carbon Dioxide 24 (22-29) mmol/L Anion Gap 12 (12-20) BUN 12 (9-16) mg/dL Creatinine 0.65 (0.5-1.4) mg/dL Estim Creat Clear Calc 113.5 Estimated GFR > 60 Random Glucose 121 H (60-115) mg/dL Calcium 8.7 (8.4-10.2) mg/dL Total Bilirubin 1.2 H (0.0-1.0) mg/dL AST 33 H (5-31) U/L ALT 25 (0-31) U/L Alkaline Phosphatase 42 (39-117) U/L Total Protein 7.2 (6.5-8.0) g/dL Albumin 4.4 (3.5-5.0) g/dL Beta HCG, Quant < 2 mIU/mL Urine Color Yellow Urine Appearance Clear Urine pH 6.5 (5.0-9.0) Ur Specific [place] 1.010 (1.005-1.025) Urine Protein Negative (Neg-Trace) mg/dL Urine Glucose (UA) Negative (Negative) mg/dL Urine Ketones 40 (Negative) mg/dL Urine Blood Negative (Negative) Urine Nitrite Negative (Negative) Ur Leukocyte Esterase Trace H (Negative) Urine RBC 0-2 (0-2) /HPF Urine WBC 0-5 (0-5) /HPF Ur Squamous Epith Cells 0-2 (0-2) /HPF Urine Bacteria None Seen (None Seen) Hyaline Casts 0-2 (0-2) /LPF Influenza Type A (PCR) NEGATIVE (Negative) Influenza Type B (PCR) NEGATIVE (Negative) RSV RNA Qual (PCR) NEGATIVE (Negative) SARS-CoV-2 RNA (RT-PCR) NEGATIVE (Negative) Independent Interpretation I performed an independent interpretation of an: CT Scan (Abdomen pelvis:. Very mild small bowel ileus pattern. 2. No obstructive or acute inflammatory changes in the gastrointestinal and genitourinary tracts. 3. No urolithiasis.) Radiology Impression Discussion of test interpretation with radiology: I have reviewed the radiologist's reading. Discharge Plan Discharge Clinical Impression: Anxiety, Acute hyperventilation, Abdominal pain Patient Disposition: Home, Self-Care Instructions: Hyperventilation (ED) Prescriptions: No Action naproxen [Naprosyn] 500 mg tablet 500 mg PO BID Qty: 20 0RF ondansetron 4 mg tablet,disintegrating 4 mg PO Q8H 4 Days Qty: 12 0RF amoxicillin-pot clavulanate 875-125 mg tablet 1 tab PO BID 10 Days Qty: 20 0RF citalopram 10 mg tablet 10 mg PO DAILY citalopram 20 mg tablet 20 mg PO DAILY gabapentin 100 mg capsule 100 mg PO TID PRN (Reason: anxiety) hydroxyzine HCl 10 mg tablet 10 - 20 mg PO DAILY PRN (Reason: insomnia) Rinvoq 30 mg tablet extended release 24 hr 30 mg PO DAILY dapsone 5 % gel 1 appl topical BID Rx Instructions: rub in gently and completely adapalene 0.1 % gel 1 appl topical DAILY albuterol sulfate 90 mcg/actuation HFA aerosol inhaler 1 inh inhalation QID Qty: 6.7 0RF epinephrine [EpiPen 2-Russell] 0.3 mg/0.3 mL auto-injector 0.3 mg IM Q4H PRN (Reason: anaphylaxis) 30 Days Qty: 2 3RF omeprazole 20 mg capsule,delayed release(DR/EC) 20 mg PO DAILY Qty: 30 2RF Referrals: Adele Rivas PA-C [Primary Care Provider] - Stand Alone Forms: Work/School Release Print Language: Bulgarian
[2024-05-28 13:02] LABS: MANUAL DIFF FLAG NO
[2024-05-28] MEDS: LORazepam 2 MG/ML VIAL 1 MG IVPUSH (13:07)
[2024-05-28] MEDS: ondansetron HCL 4 MG/2 ML VIAL IVPUSH (13:07)
[2024-05-28] MEDS: Ketorolac Tromethamine 15 MG/ML VIAL IVPUSH (13:07)
[2024-05-28] MEDS: 0.9 % Sodium Chloride 1,000 ML 999 ML IV (13:08)
[2024-05-28 13:13] LABS: Basophils Absolute Auto 0.1 X10*3/uL (0.0-0.2); Basophils Percent Auto 0.4 % (0-2); Eosinophils Absolute Auto 0.1 X10*3/uL (0.0-0.4); Eosinophils Percent Auto 0.8 % (0-4); Hematocrit 40.2 % (37.0-47.0); Hemoglobin 14.1 g/dl (12.0-16.0); Imm Gran Abs Auto 0.06 X10*3/uL (0.00-0.03); Imm Gran Pct Auto 0.5 % (0.0-0.4); Lymphocytes Absolute Auto 0.9 X10*3/uL (1.2-4.9); Lymphocytes Percent Auto 7.4 % (20-40); Mean Corpuscular HGB Conc 35.1 g/dl (31.0-35.0); Mean Corpuscular Hemoglobin 29.7 pg (27.0-33.0); Mean Corpuscular Volume 84.8 fL (80.0-98.0); Mean Platelet Volume 10.7 fL (9.4-12.3); Monocytes Absolute Auto 0.7 X10*3/uL (0.1-1.2); Monocytes Percent Auto 5.8 % (2-11); Neutrophils Absolute Auto 9.8 x10*3/uL (2.0-8.3); Neutrophils Percent Auto 85.1 % (45-73); Platelet Count 251 X10*3/uL (160-400); Red Blood Count 4.74 X10*6/uL (4.20-5.50); Red Cell Distribution Width 11.9 % (11.0-16.0); White Blood Count 11.6 X10*3/uL (4.8-10.8)
[2024-05-28 13:18] LABS: Alanine Aminotransferase 25 U/L (0-31); Albumin Level 4.4 g/dL (3.5-5.0); Alkaline Phosphatase 42 U/L (39-117); Anion Gap 12 (12-20); Aspartate Amino Transferase 33 U/L (5-31); Bilirubin Total 1.2 mg/dL (0.0-1.0); Blood Urea Nitrogen 12 mg/dL (9-16); Calcium 8.7 mg/dL (8.4-10.2); Carbon Dioxide 24 mmol/L (22-29); Chloride 107 mmol/L (96-108); Creatinine Clr Calc Pharmacy 113.5; Estimated Glomerular Filt Rate > 60; Glucose Random 121 mg/dL (60-115); Potassium 4.2 mmol/L (3.3-5.1); Sodium 139 mmol/L (135-145); Total Protein 7.2 g/dL (6.5-8.0)
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
[2024-05-28 14:07] LABS: HCG Quantitative < 2 mIU/mL
[2024-05-28 14:38] LABS: Appearance Urine Clear; Color Urine Yellow; Glucose Urine UA Negative (Negative); Leukocyte Esterase Urine Trace (Negative); Nitrite Urine Negative (Negative); PH 6.5 (5.0-9.0); UMIC TRIGGER UACC YES; Urine Blood Negative (Negative); Urine Ketones 40 mg/dL (Negative); Urine Protein Negative (Neg-Trace)
[2024-05-28 14:43] LABS: Bacteria Urine None Seen (None Seen); Hyaline Casts Urine 0-2 /LPF (0-2); RBC Urine 0-2 /HPF (0-2); Squamous Epithelial Cell Urine 0-2 /HPF (0-2); WBC Urine 0-5 /HPF (0-5)
[2024-05-28 15:11] LABS: Influenza A PCR NEGATIVE (Negative); Influenza B PCR NEGATIVE (Negative); Resp Syncy Virus RNA Qual PCR NEGATIVE (Negative); SARS COV2 PCR INHOUSE NEGATIVE (Negative)
[2024-05-28 15:48] VITALS: BP 105/57; PULSE 80; RESP 19; TEMP 36.5; O2SAT 98
== END 2024-05-28 15:49 | disposition home or self-care (01) ==
PROVIDERS: Emergency Provider Emergency Medicine
DX: R11.2 Nausea with vomiting, unspecified (principal); R51.9 Headache, unspecified; R10.9 Unspecified abdominal pain; R06.4 Hyperventilation; R10.2 Pelvic and perineal pain; Z03.818 Encounter for observation for suspected exposure to other biological agents ruled out; Z79.899 Other long term (current) drug therapy
CPT/HCPCS: 0241U; 36415; 74176; 80053; 81001; 84702; 85025; 96361; 96374; 96375; 99283; 99284; J1885; J2060; J2405

== ENCOUNTER → 2024-05-28 12:55 | Outpatient (BNV) | payer OTHER, SELFPAY | PROVIDERS: Emergency Provider Emergency Medicine; Visit Provider Radiology Diagnostic Radiology | DX: R10.9 Unspecified abdominal pain (principal); R11.2 Nausea with vomiting, unspecified | CPT/HCPCS: 74176 ==

== ENCOUNTER 2024-08-25 14:50 | Outpatient (AMB) | payer OTHER, SELFPAY ==
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
--- OUTSIDE RECORDS SUMMARY | 2024-08-25 15:00 | XMS_ITS | Clinical Summary ---
Author Organization [facility] Address [address] [place] [address] Care Team Providers Care Accounting File Clerk Name Role Phone Unavailable Primary Care Provider Unavailabl e Social History Tobacco Use Types Packs/Day Years Used Date Smoking Tobacco: Never Assessed Sex and Gender Information Value Date Recorded Sex Assigned at Not on file Gender Identity Not on file Sexual Orientation Not on file Plan of Treatment Health Maintenance Due Date Last Done Comments Hepatitis B Vaccines (1 of 3 - 3-dose series) 1993 Hepatitis C Screening 1993 COVID-19 Vaccine (#1) 03/12/1994 Depression Screening 2005 Preventative Health Evaluation 09/10/2011 Cervical Cancer Screening (Pap Smear) 2014 DTap / Tdap / Td (7 - Td or Tdap) 07/17/2019 07/16/2009, 01/07/2004, 09/17/1998, Additional history exists Influenza Vaccine (#1) 2024 Pneumococcal Vaccine Aged Out No long er eligible based on patient's age to complete this topic RSV Ped < 20 months Aged Out No longe r eligible based on patient's age to complete this topic
--- OUTSIDE RECORDS SUMMARY | 2024-08-25 15:00 | XMS_ITS ---
Author Organization [facility] Address [address] [facility] [address] [place] [address] Care Team Providers Care Typecasting Machine Operator Name Role Phone Joey Baca Primary Care Provider Unavailab Frederick Tipton Unavailable [phone] REASON FOR VISIT lab results Encounters Encounter Location Date Provider Diagnosis [facility] [address] [facility] [address] [place] [address] 04/06/2023 Frederick Rivera Plan Of Treatment No Information Progress Notes * Shantel PARK RDOB: [birth year] (27 yo F)Acc No.[id number]:04/06/2023 Patient:?Shantel PARK :1995???Age:27 Y???Sex:Female Address:[address] [place] [address], [phone] * true * Date:? Generated for Reynaldoi robyn/Lynn/eTransmitting on:?08/25/2024 02:59 PM EDT
--- OUTSIDE RECORDS SUMMARY | 2024-08-25 15:00 | XMS_ITS ---
Author Organization [facility] Address [address] [facility] [address] [place] [address] Care Team Providers Care Project Controls Specialist Name Role Phone Joey Baca Primary Care Provider Unavailab Frederick Tipton Unavailable [phone] Encounters Encounter Location Date Provider Diagnosis [facility] [address] [facility] [address] [place] [address] 03/04/2023 Frederick Rivera Plan Of Treatment No Information Progress Notes * Shantel PARK RDOB: [birth year] (27 yo F)Acc No.[id number]:03/04/2023 Patient:?Shantel PARK :1995???Age:27 Y???Sex:Female Address:[address] [place] [address], [phone] * true * Date:? Generated for Reynaldoi roybn/Lynn/eTransmitting on:?08/25/2024 02:59 PM EDT
--- NOTE | 2024-08-25 15:02 | MHC.OFFVIS ---
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 Lettering Required: No Information Interpreted: non-clinical & clinical Point Of Care Specialist: Point Of Care Specialist Present Accompanied by: Self / Same As Patient Allergies morphine [MORPHINE] Allergy (Unknown, Verified 08/25/24 15:08) HIVES grapes Allergy (Intermediate, Uncoded 08/25/24 15:08) Anaphylaxis Medication List - Last Reconciled 08/25/24 by Jovita Somers CNM adapalene 0.1% 1 appl topical DAILY albuterol sulfate 90 mcg/actuation 1 inh inhalation QID amoxicillin-pot clavulanate 875-125 mg 1 tab PO BID 10 days citalopram 10 mg PO DAILY citalopram 20 mg PO DAILY dapsone 5% 1 appl topical BID epinephrine (EpiPen 2-Russell) 0.3 mg (0.3 mL) IM Q4H PRN 30 days gabapentin 100 mg PO TID PRN hydroxyzine HCl 10 - 20 mg PO DAILY PRN ondansetron 4 mg PO Q8H 4 days upadacitinib ER (Rinvoq) 30 mg PO DAILY Is last menstrual period known: Yes Last menstrual period: 08/24/24 PFSH Medical History Psoriasis Eczema Anxiety Asthma Migraine headache No known health problems Surgical History [place] teeth removed Hx of tonsillectomy Family History Mother Asthma Diabetes FHx: uterine cancer Psychiatric problem Father Asthma Diabetes Psychiatric problem Abuse, drug or alcohol Maternal Grandmother Diabetes Hypertension Paternal Grandmother Hypertension Psychiatric problem Clotting disorder Maternal Grandfather Hypertension Family history of throat cancer Paternal Grandfather Diabetes Cancer Brother Asthma Thyroid disorder Maternal Aunt Stomach cancer Social History Housing: Apartment Alcohol intake: current Alcohol intake frequency: holidays/special occasions only Patient Tobacco Use Status: Never used Tobacco e-Cigarette/Vaping Use: Never Used service: No Current occupational status: employed Current occupation: [employer] Current occupational exposures/hazards: Yes Cognitive needs: No Hearing needs: No Vision needs: No Female Reproductive History Menstrual Age of Menarche: 10 Duration of menses: 3-5 days Date of last menstrual period: 08/24/24 control method: implanted Total pregnancies: 0 Physical Exam Vital Signs: Last Vital Signs BP 116/70 08/25/24 15:08 BMI result Body Mass Index 29.5 Const General: healthy appearing, comfortable, no acute distress, well developed and alert Nutritional Appearance: average body habitus Orientation/consciousness: patient oriented x3 Limitations: no limitations HEENT Head: Yes normocephalic Neck Neck: Yes normal visual inspection Chest Chest palpation & inspection: normal inspection of the chest Breast/axilla inspection: normal inspection of the breasts and normal inspection of the axillae Breast/axilla palpation: normal palpation of the breasts and normal palpation of the axillae Resp Effort & Inspection: normal respiratory effort GI Inspection: Yes normal to inspection, No Abdominal wall edema and No distended Palpation (GI): Soft to palpation and nontender Other: External exam within normal limits vagina pink and moist with normal appearing menses cervix nulliparous pink smooth healthy appearing. Uterus is small midposition to very very slightly retroverted mobile and nontender adnexa nontender nonenlarged good muscle tone noted. General: Yes bladder normal to palpation External Female Exam: normal external appearance and normal appearance of the urethra Speculum Exam - Vagina: normal appearance of the vagina, normal palpation and normal vaginal discharge Speculum Exam - Cervix: normal appearance of the cervix, normal palpation and nontender Bimanual exam- vagina & uterus: normal bimanual exam, normal palpation, uterine size normal, bladder normal to palpation, consistency normal, normal palpation, uterine mobility normal, uterine shape normal, No Cervical tenderness present, non-tender and no cervical motion tenderness Bimanual Exam- Adnexa, other: normal adnexae, no masses, normal and No adnexal tenderness Neuro General: patient oriented x3 Assessment & Plan Assessment & Plan (1) Cervical cancer screening: Code(s): Z12.4 - Encounter for screening for malignant neoplasm of cervix Category: Medical (2) Nexplanon in place: Comment: Patient has Nexplanon in left arm it is placed very deep. was placed at [facility] [place] 4 yrs ago. Patient desires removal-refer to general surgery. Code(s): Z97.5 - Presence of (intrauterine) contraceptive device Category: Social Hx (3) Well woman exam with routine gynecological exam: Code(s): Z01.419 - Encounter for gynecological examination (general) (routine) without abnormal findings Category: Medical (4) Patient desires : Code(s): Z31.9 - Encounter for procreative management, unspecified Category: Medical (5) Encounter for screening examination for sexually transmitted disease: Code(s): Z11.3 - Encounter for screening for infections with a predominantly sexual mode of transmission Category: Medical Plan -----Discussed in this visit the following: healthy balanced diet, regular and consistent exercise, getting recommended health screens, doing the best she can for her particular health concerns, kegel exercises, pap smear screening and followup recommendations, mammography screening and SBE, normal changes in cycles in her life stage--- .---I discussed with pt some of the optimal strategies for planning a , including achieving the best health she can before , including heathy balanced diet, exercise, wt loss to ideal BMI if appropriate, avoiding toxic substances and medications, not smoking, and taking a multivitamin w folic acid daily. Any specific health concerns should be managed before seeking/ putting oneself at risk of pregancy. In addition I reviewed normal cycles, fertility awareness and signs of ovulation, and timing to avoid, and achieve when she feel ready. I also discussed emotional and relationship and support readiness before embarking on . Discussed being physically and emotionally ready and being in the best health she can be in. Discussed taking multivitamins with folic acid discussed trying to be best weight and having addressed as many healthcare challenges as might be necessary ahead of time.. Discussed options for care and delivery in the [facility] which include depending on where she lives delivering at either [facility], [facility], [facility], and/ or other options. Discussed that is she would be having her 1st baby I would strongly recommend that she consider starting care from the start with a practice that she would want to deliver with. Discussed the rationale in the there so many issues to think about and consider in 1st that she would want establish trusting relationships with providers who are going to deliver her baby so she can feel comfortable discussing anything that could come up. Discussed that while we CAN provide care here at [facility] [facility] [employer], because we are not delivering babies here here and do not have full scope obstetrical practice here, somebody having their 1st baby would be better served starting from the beginning where they would deliver. If somebody is low risk and chooses to come here for care any obstetrical ultrasounds and specialized testing would need to be done at [facility] and delivery occurs at [facility]. Because of the issues involved with transfer information sometimes information can sometimes not crossover as expected. Testing ordered for her for HIV hep B hep C and syphilis that she can do at her own discretion. Since the Nexplanon is very deep and I honestly can not palpate it though she can find where it is based on how it feels in her arm, I am referring her to general surgery for consultation about removal. She is working in the emergency room. So some day she can simply go upstairs and seek out an appointment that works well for her to discuss removal.. In addition she is unsure about her family history of breast cancer there was a question of a history of maternal breast cancer around age 50 but she is questioning the veracity of all of the details with that. Discussed at some length and she may discuss again with other providers she has given the age of the suppose it diagnosis, then the screening starting at age 40 would be appropriate. Per the history that she is slightly unsure of the report was that her mother was BRCA negative. I placed a referral to general surgery to consult about Nexplanon removal. Orders: Orders Pap Smear Today Z01.419 - Encounter for gynecological examination (general) (routine) without abnormal findings HPV High risk Today Z01.419 - Encounter for gynecological examination (general) (routine) without abnormal findings CT NG by PCR Today Z01.419 - Encounter for gynecological examination (general) (routine) without abnormal findings Hepatitis B Surface Antigen Today Z01.419 - Encounter for gynecological examination (general) (routine) without abnormal findings, Z12.4 - Encounter for screening for malignant neoplasm of cervix, Z31.9 - Encounter for procreative management, unspecified, Z97.5 - Presence of (intrauterine) contraceptive device HIV Ab/Ag Today Z01.419 - Encounter for gynecological examination (general) (routine) without abnormal findings, Z12.4 - Encounter for screening for malignant neoplasm of cervix, Z31.9 - Encounter for procreative management, unspecified, Z97.5 - Presence of (intrauterine) contraceptive device Syphilis Screen Today Z01.419 - Encounter for gynecological examination (general) (routine) without abnormal findings, Z12.4 - Encounter for screening for malignant neoplasm of cervix, Z31.9 - Encounter for procreative management, unspecified, Z97.5 - Presence of (intrauterine) contraceptive device Bacterial Vaginosis Panel Today Z01.419 - Encounter for gynecological examination (general) (routine) without abnormal findings Hepatitis C Antibody Today Z01.419 - Encounter for gynecological examination (general) (routine) without abnormal findings, Z12.4 - Encounter for screening for malignant neoplasm of cervix, Z31.9 - Encounter for procreative management, unspecified, Z97.5 - Presence of (intrauterine) contraceptive device Referrals General Surgery Referral Z01.419 - Encounter for gynecological examination (general) (routine) without abnormal findings, Z11.3 - Encounter for screening for infections with a predominantly sexual mode of transmission, Z12.4 - Encounter for screening for malignant neoplasm of cervix, Z31.9 - Encounter for procreative management, unspecified, Z97.5 - Presence of (intrauterine) contraceptive device Coding Level of Care Code New Pt Prev Care 18-39yr(65982 Diagnoses Cervical cancer screening Z12.[address] Z97.5 Well woman exam with routine gynecological exam Z01.419 Patient desires Z31.9 Encounter for screening examination for sexually transmitted disease Z11.3
[2024-08-25 15:08] VITALS: BP 116/70; BMI 29.5
== END 2024-08-25 16:20 | disposition home or self-care (01) ==
LOC: HO.HWS 14:50
PROVIDERS: Visit Provider Advanced Practice Midwife
DX: Z01.419 Encounter for gynecological examination (general) (routine) without abnormal findings (principal); Z97.5 Presence of (intrauterine) contraceptive device
CPT/HCPCS: 99385; 99459

== ENCOUNTER 2024-08-25 14:50 | Outpatient (REF) | payer OTHER, SELFPAY ==
--- OUTSIDE RECORDS SUMMARY | 2024-08-25 16:22 | XMS_ITS | Clinical Summary ---
Author Organization [facility] Address [address] [place] [address] Care Team Providers Care Bag Press Operator Name Role Phone Unavailable Primary Care Provider [...]
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
[2024-08-26 02:51] LABS: CT PCR NOT DETECTED (Not Detect.); NG PCR NOT DETECTED (Not Detect.)
[2024-08-26 11:36] LABS: Bacterial Vaginosis PCR NEGATIVE (Negative); Candida Group PCR NOT DETECTED (Not Detect); Candida glab krusei PCR NOT DETECTED (Not Detect); Trichomonas vaginalis PCR NOT DETECTED (Not Detect)
[2024-09-02 15:17] LABS: HPV Genotype 16 Negative (Negative); HPV Genotype 18 Negative (Negative); HPV High Risk Positive (Negative)
== END 2024-08-25 14:51 | disposition home or self-care (01) ==
LOC: HO.LNP 14:50
PROVIDERS: Visit Provider Advanced Practice Midwife
DX: Z01.419 Encounter for gynecological examination (general) (routine) without abnormal findings (principal); Z97.5 Presence of (intrauterine) contraceptive device
CPT/HCPCS: 81515; 87491; 87591; 87626; 88175

== ENCOUNTER 2024-09-21 12:54 | Outpatient (AMB) | payer OTHER, SELFPAY ==
--- NOTE | 2024-09-21 13:07 | A.OFFVIS_ITS ---
Intake Visit Reasons: Colposcopy Mechanical Service Specialist: Mechanical Service Specialist Present (Blanka) Accompanied by: Spouse Allergies morphine [MORPHINE] Allergy (Unknown, Verified 09/21/24 13:09) HIVES grapes Allergy (Intermediate, Uncoded 08/25/24 15:08) Anaphylaxis Is last menstrual period known: Yes Last menstrual period: 09/18/24 HPI Comments Details: Presenting for abnormal Pap smear ascus HPV positive HPV 16/18 negative [facility] Medical History Psoriasis Eczema Anxiety Asthma Migraine headache No known health problems Surgical History [place] teeth removed Hx of tonsillectomy Family History Mother Asthma Diabetes FHx: uterine cancer Psychiatric problem Father Asthma Diabetes Psychiatric problem Abuse, drug or alcohol Maternal Grandmother Diabetes Hypertension Paternal Grandmother Hypertension Psychiatric problem Clotting disorder Maternal Grandfather Hypertension Family history of throat cancer Paternal Grandfather Diabetes Cancer Brother Asthma Thyroid disorder Maternal Aunt Stomach cancer Social History Housing: Apartment Alcohol intake: current Alcohol intake frequency: holidays/special occasions only Patient Tobacco Use Status: Never used Tobacco e-Cigarette/Vaping Use: Never Used service: No Current occupational status: employed Current occupation: [employer] Current occupational exposures/hazards: Yes Cognitive needs: No Hearing needs: No Vision needs: No Female Reproductive History Menstrual Age of Menarche: 10 Date of last menstrual period: 09/18/24 Review of Systems Const All systems reviewed & are unremarkable except as noted in HPI and below Reports as per HPI and Reports no additional complaints GI Reports no additional complaints Reports no additional complaints Office Procedures Colposcopy Colposcopy: Pre-Procedure Counseling: Before beginning the procedure, I conducted comprehensive counseling with the patient. We thoroughly discussed the procedure itself, including its details, alternatives, and all associated risks. This included but not limited to the following complications such as bleeding, infection, and injury to the vagina, bladder, and vessels, as well as the potential need for transfusion with all its associated risks. Subsequently, the patient sign the consent. Pap smear result: Ascus HPV positive, HPV 16/18 negative Urine test in office = Negative Procedure: During the procedure, the following steps were performed: A speculum was inserted, and acetic acid was applied. Colposcopy was conducted, allowing visualization of the transformation zone. Acetowhite lesions were identified at the 6+ 7+ 11+ 12+ 1 o'clock position. Cervical biopsies were obtained from the 6+ 7+ 11+ 12+1 o'clock position, followed by an endocervical curettage (ECC). Vaginoscopy of the upper vagina revealed no evidence of aceto-white lesions. Hemostasis was achieved using Monsel solution, and the patient tolerated the procedure well. Post-Procedure Instructions: The patient was advised to promptly contact the office or the after hours answering service or go to the emergency room if experiencing a temperature exceeding 100.4?F, abdominal pain, nausea/vomiting, or bleeding. Additionally, the patient was instructed to abstain from vaginal intercourse and bathtub use. The patient confirmed understanding of these instructions. Discharge Instructions: The patient was instructed to schedule a follow-up appointment in 2 weeks for further evaluation and management. Please note that this note was generated using a voice recognition program, and errors may have occurred during jewelry facer. [id number] of cervix including upper vagina with biopsy and ECC Procedure code (CPT) selection complete Results AMB Test Urine AMB Test Urine Negative Last Edit by NAVJOT Rasmussen on 09/21/24 13:10 Results Reviewed Results Reviewed: Laboratory Last Values [facility] Clinic Negative 09/21/24 13:09 Assessment & Plan Assessment & Plan (1) ASCUS with positive high risk HPV cervical: Code(s): R87.610 - Atypical squamous cells of undetermined significance on cytologic smear of cervix (ASC-US); R87.810 - Cervical high risk human papillomavirus (HPV) DNA test positive Category: Medical Plan: Discussed with the patient the result of her abnormal pap, its significance, risk of progression, persistence, and regression. the false positive/negative rate of a Pap smear as a screening test in detecting cervical cancer and the indication for a diagnostic test -colposcopy, biopsy, endocervical curettage. The patient verbalized understanding and agreed with the plan, all questions answered. Colpo biopsy ECC done, see procedure note Orders: Orders AMB HCG Urine Test Today Z32.02 - Encounter for test, result negative AMB Colposcopy Today R87.610 - Atypical squamous cells of undetermined significance on cytologic smear of cervix (ASC-US), R87.810 - Cervical high risk human papillomavirus (HPV) DNA test positive Coding Level of Care Code Procedure Only Diagnoses ASCUS with positive high risk HPV cervical R87.610; R87.810 CPT Codes Colposcopy - CPT: 41275-Tqfmudiqu of cervix including upper vagina with biopsy and ECC ([id number])
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
--- OUTSIDE RECORDS SUMMARY | 2024-09-21 13:30 | XMS_ITS | Clinical Summary ---
Author Organization [facility] Address [address] [place] [address] Care Team Providers Care Air Drill Operator Name Role Phone Unavailable Primary Care [...]
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
== END 2024-09-21 13:27 | disposition home or self-care (01) ==
LOC: HO.HWS 12:54
PROVIDERS: Visit Provider Obstetrics & Gynecology
DX: R87.610 Atypical squamous cells of undetermined significance on cytologic smear of cervix (ASC-US) (principal); R87.810 Cervical high risk human papillomavirus (HPV) DNA test positive; Z32.02 Encounter for pregnancy test, result negative
CPT/HCPCS: 57454

== ENCOUNTER 2024-09-21 12:54 | Outpatient (REF) | payer OTHER, SELFPAY ==
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
--- OUTSIDE RECORDS SUMMARY | 2024-09-21 14:03 | XMS_ITS | Clinical Summary ---
Author Organization [facility] Address [address] [place] [address] Care Team Providers Care Distribution Engineering Technologist Name Role Phone Unavailable Primary Care Provider [...]
== END 2024-09-21 12:55 | disposition home or self-care (01) ==
LOC: HO.LNP 12:54
PROVIDERS: Visit Provider Obstetrics & Gynecology
DX: Z30.46 Encounter for surveillance of implantable subdermal contraceptive (principal); R87.612 Low grade squamous intraepithelial lesion on cytologic smear of cervix (LGSIL); R87.610 Atypical squamous cells of undetermined significance on cytologic smear of cervix (ASC-US); R87.810 Cervical high risk human papillomavirus (HPV) DNA test positive
CPT/HCPCS: 11982; 57454; 81025; 88300; 88305; 88341; 88342

== ENCOUNTER 2024-09-21 15:43 | Outpatient (AMB) | payer OTHER, SELFPAY ==
--- NOTE | 2024-09-21 15:46 | A.OFFVIS_ITS ---
Vital Signs 09/21/24 15:54 Height 5 ft 1 in Weight 160 lb BMI 30.2 BP 123/59 L Blood Pressure Location Rt brachial Position Sitting Pulse 78 Intake Visit Reasons: remove nexplanon implant in arm Intake Note: Patient here to discuss removal of nexplanon implant in Lt arm. Patient c/o: nexplanon due to come out but too deep for OB/ ANTENNA MACHINE OPERATOR to do it. Delivery Clerk Required: No Accompanied by: Self / Same As Patient Allergies morphine [MORPHINE] Allergy (Unknown, Verified 09/21/24 15:50) HIVES grapes Allergy (Intermediate, Uncoded 09/21/24 15:50) Anaphylaxis Medication List - Last Reconciled 09/21/24 by Corey Celeste MD adapalene 0.1% 1 appl topical DAILY albuterol sulfate 90 mcg/actuation 1 inh inhalation QID citalopram 10 mg PO DAILY citalopram 20 mg PO DAILY dapsone 5% 1 appl topical BID epinephrine (EpiPen 2-Russell) 0.3 mg (0.3 mL) IM Q4H PRN 30 days gabapentin 100 mg PO TID PRN hydroxyzine HCl 10 - 20 mg PO DAILY PRN ondansetron 4 mg PO Q8H 4 days upadacitinib ER (Rinvoq) 30 mg PO DAILY HPI HPI remove nexplanon implant in arm: Details: [age] year old female here for removal of a Nexplanon implant from the left upper arm. She says she has had this for about 4 years now. PFSH Medical History Psoriasis Eczema Anxiety Asthma Migraine headache No known health problems Surgical History [place] teeth removed Hx of tonsillectomy Family History Mother Asthma Diabetes FHx: uterine cancer Psychiatric problem Father Asthma Diabetes Psychiatric problem Abuse, drug or alcohol Maternal Grandmother Diabetes Hypertension Paternal Grandmother Hypertension Psychiatric problem Clotting disorder Maternal Grandfather Hypertension Family history of throat cancer Paternal Grandfather Diabetes Cancer Brother Asthma Thyroid disorder Maternal Aunt Stomach cancer Social History Housing: Apartment Alcohol intake: current Alcohol intake frequency: holidays/special occasions only Patient Tobacco Use Status: Never used Tobacco e-Cigarette/Vaping Use: Never Used service: No Current occupational status: employed Current occupation: [employer] Current occupational exposures/hazards: Yes Cognitive needs: No Hearing needs: No Vision needs: No Female Reproductive History Menstrual Age of Menarche: 10 Review of Systems Const Denies chills and Denies fever(s) Card Denies chest pain, Denies dyspnea and Denies dyspnea on exertion Resp Denies cough, Denies dyspnea and Denies dyspnea on exertion GI Denies hematochezia and Denies change in bowel habits Denies hematuria Musc Denies back pain and Denies limited range of motion Neuro Denies focal weakness and Denies convulsions Psych Denies depression and Denies mood swings Physical Exam Vital Signs: Last Vital Signs Pulse 78 09/21/24 15:54 BP 123/59 L 09/21/24 15:54 BMI result Body Mass Index 30.2 Office Procedures AMB Foreign Body Removal Details: She was in reclining position. The area of the Nexplanon implant was prepped and draped. This was on the left upper arm additional was nonpalpable but the patient pointed out where the approximate area is has she says that she occasionally feels this. I infiltrated the planned line of incision with lidocaine 1%. I made the incision with a blade 15 transversely. This was carried down through the full-thickness of the skin and subcutaneous fat. I then used hemostasis to gently dissect the subcutaneous fat. I proceeded slowly and the Nexplanon implant was eventually seen in the very deep subcutaneous layer. I gently bluntly dissected this off of the deep subcutaneous fat until was able to deliver this. This was sent as a specimen. I closed the incision with full-thickness nylon 4-0 simple interrupted sutures. Dressings were applied. The procedure was completed. She tolerated the procedure well. There were no immediate complications. She was given wound care instructions Foreign Body Removal Complex: [id number] body removal, complex Procedure code (CPT) selection complete Results AMB Test Urine AMB Test Urine Negative Last Edit by NAVJOT Rasmussen on 09/21/24 13:10 Assessment & Plan Assessment & Plan (1) Nexplanon in place: Comment: Patient has Nexplanon in left arm it is placed very deep. was placed at [facility] [place] 4 yrs ago. Patient desires removal-refer to general surgery. Code(s): Z97.5 - Presence of (intrauterine) contraceptive device Category: Social Hx Plan: Removal of the Nexplanon implant was done successfully. She was given wound care instructions. I will see her in the office for removal sutures in about 2 weeks. Coding Level of Care Code Procedure Only Diagnoses Nexplanon in place Z97.5 CPT Codes Details - Foreign body complex: [id number] body removal, complex ([id number])
[2024-09-21 15:54] VITALS: BP 123/59; PULSE 78; BMI 30.2
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
== END 2024-09-22 08:52 | disposition home or self-care (01) ==
LOC: HO.HGS 15:43
PROVIDERS: Visit Provider Surgery
DX: Z30.46 Encounter for surveillance of implantable subdermal contraceptive (principal)
CPT/HCPCS: 11982

== ENCOUNTER 2024-10-09 07:38 | Outpatient (AMB) | payer OTHER, SELFPAY ==
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
--- NOTE | 2024-10-09 07:42 | MHC.OFFVIS ---
Vital Signs 10/09/24 07:46 Height 5 ft 1 in Weight 160 lb BMI 30.2 Intake Visit Reasons: colpo follow up Test Case Developer Required: No Information Interpreted: non-clinical & clinical Accompanied by: Self / Same As Patient Allergies morphine [MORPHINE] Allergy (Unknown, Verified 10/09/24 07:47) HIVES grapes Allergy (Intermediate, Uncoded 10/09/24 07:47) Anaphylaxis HPI Comments Details: Presenting post colpo for follow-up. The patient is doing well with no complaints. The pathology showed the following: A. Cervix, 6 o'clock, biopsy: Inflamed cervical transformation zone mucosa with squamous metaplasia and reactive changes. B. Cervix, 7 o'clock, biopsy: Inflamed cervical transformation zone mucosa with squamous metaplasia and reactive changes. C. Cervix, 11 o'clock, biopsy: - Low-grade squamous intraepithelial lesion (SANDIP 1). - Endocervical epithelium within normal limits. D. Cervix, 12 o'clock, biopsy: Endocervical mucosa within normal limits; no squamous epithelium identified. E. Cervix, 1 o'clock, biopsy: Mildly inflamed endocervical and squamous mucosa with reactive changes; no atypia identified. F. Endocervix, curettage: Small superficial strip of degenerated squamous epithelium; no endocervical epithelium identified [facility] Medical History Psoriasis Eczema Anxiety Asthma Migraine headache No known health problems Surgical History [place] teeth removed Hx of tonsillectomy Family History Mother Asthma Diabetes FHx: uterine cancer Psychiatric problem Father Asthma Diabetes Psychiatric problem Abuse, drug or alcohol Maternal Grandmother Diabetes Hypertension Paternal Grandmother Hypertension Psychiatric problem Clotting disorder Maternal Grandfather Hypertension Family history of throat cancer Paternal Grandfather Diabetes Cancer Brother Asthma Thyroid disorder Maternal Aunt Stomach cancer Social History Housing: Apartment Alcohol intake: current Alcohol intake frequency: holidays/special occasions only Patient Tobacco Use Status: Never used Tobacco e-Cigarette/Vaping Use: Never Used service: No Current occupational status: employed Current occupation: [employer] Current occupational exposures/hazards: Yes Cognitive needs: No Hearing needs: No Vision needs: No Female Reproductive History Menstrual Age of Menarche: 10 Review of Systems Const All systems reviewed & are unremarkable except as noted in HPI and below Reports as per HPI and Reports no additional complaints GI Reports no additional complaints Reports no additional complaints Assessment & Plan Assessment & Plan (1) Dysplasia of cervix, low grade (SANDIP 1): Code(s): N87.0 - Mild cervical dysplasia Category: Medical Plan: Discussed with the patient the pathology results of the colposcopy biopsies & endocervical curettage ( mild dysplasia-SANDIP 1). Discussed with the patient the sensitivity specificity, positive and negative predictive value in detecting cervical cancer in addition discussed the regression, persistence and progression rates. Recommended co-testing in 12 months, if cytology and or HPV are abnormal will proceed was colposcopy biopsy and endocervical curettage, if lesions gets worse or stays persistent for 2 years will proceed with loop electric excision procedure. Instructions given to the patient to schedule a co test appointment in 1 year. All questions answered the patient verbalized understanding. Coding Level of Care Code Est Pt Level 3 (32013) Diagnoses Dysplasia of cervix, low grade (SANDIP 1) N87.0
[2024-10-09 07:46] VITALS: BMI 30.2
== END 2024-10-09 07:55 | disposition home or self-care (01) ==
LOC: HO.HWS 07:38
PROVIDERS: Visit Provider Obstetrics & Gynecology
DX: N87.0 Mild cervical dysplasia (principal)
CPT/HCPCS: 99213

== ENCOUNTER 2025-03-16 08:24 | Outpatient (AMB) | payer OTHER, SELFPAY ==
[2025-03-16 08:28] VITALS: BP 110/66; PULSE 78; RESP 18; TEMP 36.2; O2SAT 100; BMI 32.2
--- NOTE | 2025-03-16 08:28 | MHC.PC.OV ---
Vital Signs 03/16/25 08:28 Height 5 ft 1 in Weight 170 lb 8 oz BMI 32.2 BP 110/66 Blood Pressure Location Lt brachial Position Sitting Respiration 18 Pulse 78 Pulse Source Pulse Oximeter Temp 97.1 F Temp Source Temporal Artery Scan Pulse Oximetry (%) 100 Oxygen Delivery Method Room Air Intake Visit Reasons: Annual Exam Meat Clerk Required: No Accompanied by: Self / Same As Patient Allergies morphine (MORPHINE) Allergy (Unknown, Verified 03/16/25 08:51) HIVES grapes Allergy (Intermediate, Uncoded 03/16/25 08:51) Anaphylaxis Medication List - Last Reconciled 03/16/25 by Adele Rivas PA-C adapalene 0.1% 1 appl topical DAILY albuterol sulfate 90 mcg/actuation 1 inh inhalation QID citalopram 10 mg PO DAILY citalopram 20 mg PO DAILY dapsone 5% 1 appl topical BID epinephrine (EpiPen 2-Russell) 0.3 mg (0.3 mL) IM Q4H PRN 30 days gabapentin 100 mg PO TID PRN hydroxyzine HCl 10 - 20 mg PO DAILY PRN ondansetron 4 mg PO Q8H 4 days upadacitinib ER (Rinvoq) 30 mg PO DAILY Tobacco use date assessed: 03/16/25 Dental Screening Dental Screen Date: 03/16/25 Did you have a dental visit in the last 12 months?: Yes Did you have a dental problem in the last 6 months where you did not have access to dental care?: No Was dental information given to patient?: Patient has dentist HPI Annual Exam HPI Details 29-year-old female with past medical history of anxiety, depression last seen 03/2024 coming in for annual exam.? In review of the notes, patient was seen by Gynecology 09/2024 for follow up after colposcopy revealing low-grade SANDIP 1 recommending repeat testing in 12 months. Presenting for evaluation of shoulder pain, palpitations, and management of chronic conditions. She has been experiencing left shoulder pain for the past 2-3 weeks, describing a sensation of it popping out of the socket, which makes it difficult to put on her jacket or lift with that arm. She cannot recall a specific injury but notes she has been moving items around the house. The patient also reports daily heart palpitations, which have become prominent since her , occurring up to three times a day and lasting for a couple of seconds-minutes. These episodes are sometimes associated with shortness of breath. The patient is and experienced debilitating nausea for the first eight weeks, which has since resolved, and she has gained 12 pounds. She reports poor sleep, not due to discomfort but an inability to fall asleep, and she cannot sleep on her back due to difficulty breathing. [place] [facility] [place] Medical History Psoriasis Eczema Anxiety Asthma Migraine headache No known health problems Surgical History [place] teeth removed Hx of tonsillectomy Family History Mother Asthma Diabetes FHx: uterine cancer Psychiatric problem Father Asthma Diabetes Psychiatric problem Abuse, drug or alcohol Maternal Grandmother Diabetes Hypertension Paternal Grandmother Hypertension Psychiatric problem Clotting disorder Maternal Grandfather Hypertension Family history of throat cancer Paternal Grandfather Diabetes Cancer Brother Asthma Thyroid disorder Maternal Aunt Stomach cancer Social History Housing: Apartment Alcohol intake: current Alcohol intake frequency: holidays/special occasions only Patient Tobacco Use Status: Never used Tobacco e-Cigarette/Vaping Use: Never Used service: No Current occupational status: employed Current occupation: [employer] Current occupational exposures/hazards: Yes Cognitive needs: No Hearing needs: No Vision needs: No Female Reproductive History Menstrual Age of Menarche: 10 Questionnaire PHQ-9 Over the last 2 weeks, how often have you been bothered by any of the following problems? 1. Little interest or pleasure in doing things: not at all 2. Feeling down, depressed, or hopeless: not at all 3. Trouble falling or staying asleep, or sleeping too much: nearly every day 4. Feeling tired or having little energy: more than half the days 5. Poor appetite or overeating: not at all 6. Feeling bad about yourself - or that you are a failure or have let yourself or your family down: not at all 7. Trouble concentrating on things, such as reading the newspaper or watching television: not at all 8. Moving or speaking so slowly that other people could have noticed. Or the opposite - being so fidgety or restless that you have been moving around a lot more than usual: not at all 9. Thoughts that you would be better off or of hurting yourself in some way: not at all Total score: 5 Depression Screening Interpretation: Positive Depression Screening Follow-up: Existing condition and In treatment Depression Screening Done: Yes Source: Developed by Drs. Colton Jonas, Kayce Cardoza, Alexis Toscano and colleagues, with an educational alexandra from [employer]. Thrive Questionnaire Date Thrive assessed: 03/16/25 I am a: Patient What is your living situation today?: I have a steady place to live Within the past 12 months, did the food you bought not last and you didn't have the money to get more?: I choose not to answer this question Within the past 12 months, did you worry whether your food would run out before you got money to buy more?: I choose not to answer this question Do you have trouble paying for medicines?: I choose not to answer this question Do you have trouble getting transportation to medical appointments?: I choose not to answer this question Do you have trouble paying your heating and electricity bill?: I choose not to answer this question Do you have trouble taking care of your child, family member or friend?: I choose not to answer this question Do you have trouble with day-to-day activities such as bathing, preparing meals, shopping, managing finances, etc.?: I choose not to answer this question Are you currently unemployed and looking for a job?: No Are you interested in more education?: I choose not to answer this question Please select the resources that you would like help with: None Currently or been in a relationship where the following occur: I choose not to answer THRIVE Score: 0 AUDIT C Alcohol Use Questionnaire (AUDIT-C) 1. How often do you have a drink containing alcohol?: Never Total Score: 0 ASHLYN-7 AMB Questionnaire ASHLYN-7 Date ASHLYN - 7 assessed: 03/16/25 Feeling nervous, anxious, or on edge: 2 = More than half the days Not being able to stop or control worryin = Several days Worrying too much about different things: 1 = Several days Trouble relaxin = More than half the days Being so restless that it is hard to sit still: 0 = Not at all Becoming easily annoyed or irritable: 0 = Not at all Feeling afraid as if something awful might happen: 1 = Several days Total ASHLYN-7 score (0-4 normal; 5-9 mild; 10-14 moderate; 15-21 severe): 7 Source: Developed by Drs. Colton Jonas, Kayce Cardoza, Alexis Toscano and colleagues, with an educational alexandra from [employer]. ASHLYN-7 Assessment Billing ASHLYN-7 Assessment Tool: ASHLYN-7 Assessment 99929 Review of Systems Const Denies body aches, Denies fatigue, Denies fever(s), Denies frequent falls, Denies headache(s) and Denies weakness Eyes Reports no additional complaints and Denies change in vision ENT Denies dysphagia, Denies dizziness, Denies facial pain, Denies headache(s), Denies nasal congestion and Denies odynophagia Card Denies chest pain, Denies syncope, Denies irregular heart rhythm, Denies leg edema, Denies lightheadedness, Reports palpitations and Denies dyspnea Resp Denies cough and Denies dyspnea GI Denies abdominal pain, Denies constipation, Denies dysphagia, Denies dyspepsia, Denies diarrhea, Reports nausea, Denies odynophagia and Denies vomiting Denies urinary frequency, Denies dysuria, Denies urinary hesitancy and Denies urinary urgency Musc Details: right shoulder pain Reports as per HPI, Denies back pain and Denies myalgias Skin/Breast Reports system reviewed and no additional complaints, except as documented Neuro Denies dizziness, Denies syncope, Denies frequent falls, Denies headache(s) and Denies weakness Psych Reports no additional complaints Endo Denies fatigue and Reports palpitations Physical exam (Primary Care) Vital Signs: Last Vital Signs Temp 97.1 F 03/16/25 08:28 Pulse 78 03/16/25 08:28 Resp 18 03/16/25 08:28 BP 110/66 03/16/25 08:28 Pulse Ox 100 03/16/25 08:28 Oxygen Delivery Method Room Air 03/16/25 08:28 BMI result Body Mass Index 32.2 Tobacco/Smoking Status: Tobacco use Status Tobacco use date assessed 03/16/25 03/16/25 08:35 Patient Tobacco Use Status Never used Tobacco 03/16/25 08:35 e-Cigarette/Vaping Use Never Used 03/16/25 08:35 PHQ-9: PHQ-9 Score PHQ-9: Total score 5 03/16/25 09:23 Depression Screening Interpretation: Positive Depression Screening Follow-up: Existing condition and In treatment Thrive Assessment: Date of Thrive Assessment Date Thrive assessed 03/16/25 03/16/25 08:35 Currently or been in a relationship where the following occur: I choose not to answer Const General: cooperative, healthy appearing, comfortable and no acute distress Orientation/consciousness: patient oriented x3 HENMT Head: Yes normocephalic Ears: hearing grossly normal bilaterally, external ears normal, TM's normal bilaterally and EAC's normal General nose exam: Normal external nose present Face and sinus: Yes normal facial exam and Yes sinuses nontender Mouth: Normal oral and palatal mucosa present and tongue normal Throat: Yes posterior oropharynx normal Eyes General: appearance normal, both eyes and all related structures Conjunctivae: conjunctivae normal Pupils: Equal, round and reactive pupils present EOM: EOMs intact bilaterally and No Nystagmus present Neck Neck: Yes normal visual inspection, Yes full ROM and Yes no lymphadenopathy Chest Chest palpation & inspection: normal inspection of the chest Resp Effort & Inspection: normal respiratory effort Auscultation: clear to auscultation bilaterally, no crackles, no rales, no rhonchi, no wheezes and breath sounds present Cardio Rate: regular rate Rhythm: regular rhythm Peripheral pulses: radial pulses present and dorsalis pedis present GI Inspection: Yes normal to inspection and No Abdominal wall edema Palpation (GI): Soft to palpation, not firm and nontender Auscultation: normal bowel sounds Rectal Exam - Female: deferred General: Yes no CVA tenderness Back/Spine/Pelvis Back: no CVA tenderness Skin General skin exam: no rashes or lesions noted Neuro General: patient oriented x3 Cranial nerves: Yes Equal, round and reactive pupils present, Yes Midline tongue present, Yes Ability to bilaterally elevate shoulders present and No Nystagmus present Gait exam (Neuro): Normal gait present Extrem Other: Tenderness to palpation over entirety of right shoulder and AC joint. Range of motion is limited due to pain and pain elicited with internal rotation as well as extension and lateral raise of the right shoulder General: Yes normal to inspection, Yes full ROM, No no pedal edema and No edema Psych Speech and movement: Normal speech and movement present Affect: normal affect Insight: Good insight present (Psych) Judgement: Good judgement present (Psych) Coding Level of Care Code Est Pt Prev Care 18-39y([id number]) Diagnoses Annual physical exam Z00.00 Eczema L30.9 PTSD (post-traumatic stress disorder) F43.10 Asthma J45.909 Anxiety F41.9 Cervical cancer screening Z12.4 Overweight E66.3 Z34.90 Palpitations R00.2 Right shoulder pain M25.511 Additional Codes ASHLYN-7 Assessment Billing - ASHLYN-7 Assessment Tool: ASHLYN-7 Assessment 43878 ([id number]) Assessment & Plan Assessment & Plan (1) Annual physical exam: Code(s): Z00.00 - Encounter for general adult medical examination without abnormal findings Category: Medical Plan: Patient is up-to-date on all recommended routine screenings and vaccinations for her age. Healthy diet and regular exercise is encouraged. Blood work is up-to-date and she will continue to follow with her Ob (2) Eczema: Code(s): L30.9 - Dermatitis, unspecified Category: Medical Plan: Continue to follow with [facility] and using triamcinalone prn while . (3) PTSD (post-traumatic stress disorder): Comment: Salma rinaldi for psych Code(s): F43.10 - Post-traumatic stress disorder, unspecified Category: Medical Plan: Continue on current medication regimen and continue to follow with psychiatrist. (4) Asthma: Code(s): J45.909 - Unspecified asthma, uncomplicated Category: Medical Plan: Asthma currently controlled on present medications. Continue on albuterol as needed. Avoid triggers such as allergies. (5) Anxiety: Code(s): F41.9 - Anxiety disorder, unspecified Category: Medical Plan: Continue on current medication regimen and continue to follow with psychiatrist. (6) Cervical cancer screening: Comment: 08/25/2024 Pap now shows ASCUS, HPV is positive. Pt needs colposcopy. Code(s): Z12.4 - Encounter for screening for malignant neoplasm of cervix Category: Medical Plan: Continue to follow with financial services intern UTD 2024. (7) Overweight: Code(s): E66.3 - Overweight Category: Medical Plan: Healthy diet and regular exercise is encouraged. (8) : Code(s): Z34.90 - Encounter for supervision of normal , unspecified, unspecified trimester Category: Medical Plan: 17 weeks and currently following with [facility]. (9) Palpitations: Code(s): R00.2 - Palpitations Category: Medical Plan: Given the patient's daily palpitations associated with shortness of breath and dizziness, a Holter monitor is being ordered to evaluate her heart rhythm. While these symptoms could be related to the increased physiological demands of , a further workup is warranted. The patient is advised to keep a log of her palpitations to identify potential triggers. Coordination with her OB is planned to determine necessary blood work, such as a thyroid panel, to avoid duplicate testing. A telehealth follow-up is scheduled in three months to review her symptoms and test results. I did also advised patient to reach out to her OB as soon as possible to discuss this with her (10) Right shoulder pain: Code(s): M25.511 - Pain in right shoulder Category: Medical Plan: The patient's left shoulder pain is likely due to tendonitis or a muscle strain. Management will start with conservative measures including rest, heat, and gentle exercises. The use of topical capsaicin-based patches, such as Salonpas, is suggested as they have limited systemic absorption, but the patient is advised to confirm safety with her power plant inspector first. She should also check with her OB regarding the use of lidocaine patches. If her symptoms do not improve, a referral to physical therapy will be considered. Plan This note was constructed using voice recognition software. While every effort has been made to ensure accuracy and respiratory therapy instructor, still areas may have been included sometimes these areas may affect the content or meeting of the given symptoms. Total time spent caring for the patient today was 30 minutes. This includes time spent before the visit reviewing the chart, time spent during the visit, and time spent after the visit and documentation. Orders: Orders ECG 3 day holter monitor Today R00.2 - Palpitations Medications: Discontinued ondansetron Discontinued Reason: Patient Completed Course 4 mg PO Q8H 4 days 12 tabs 0RF
--- OUTSIDE RECORDS SUMMARY | 2025-03-16 08:55 | XMS_ITS | Clinical Summary ---
Author Organization [facility] Address [address] [place] [address] Care Team Providers Care Forest Management Professor Name Role Phone Unavailable Primary Care Provider [...] 09/17/1998, Additional history exists Influenza Vaccine (#1) 2025 Pneumococcal Vaccine Aged Out No long er eligible based on patient's age to complete this topic RSV Ped < 20 months Aged Out No longe r eligible based on patient's age to complete this topic
--- OUTSIDE RECORDS SUMMARY | 2025-03-16 08:55 | XMS_ITS ---
Author Name [facility] Organization Unknown Care Team Organization Name Specialty Phone Email Start Date End Da te [facility] 03/17/2022 12/27/2023
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
== END 2025-03-16 09:28 | disposition home or self-care (01) ==
LOC: HO.HMCH 08:25
DX: Z00.00 Encounter for general adult medical examination without abnormal findings (principal); L30.9 Dermatitis, unspecified; F43.10 Post-traumatic stress disorder, unspecified; J45.909 Unspecified asthma, uncomplicated; F41.9 Anxiety disorder, unspecified; Z12.4 Encounter for screening for malignant neoplasm of cervix; E66.3 Overweight; Z34.90 Encounter for supervision of normal pregnancy, unspecified, unspecified trimester; R00.2 Palpitations; M25.511 Pain in right shoulder

== ENCOUNTER → 2025-03-16 08:24 | Outpatient (BNVA) | payer OTHER, SELFPAY | DX: Z00.00 Encounter for general adult medical examination without abnormal findings (principal); O99.342 Other mental disorders complicating pregnancy, second trimester; O99.512 Diseases of the respiratory system complicating pregnancy, second trimester; O99.412 Diseases of the circulatory system complicating pregnancy, second trimester; O26.892 Other specified pregnancy related conditions, second trimester; M25.511 Pain in right shoulder; L30.9 Dermatitis, unspecified; R00.2 Palpitations; F43.10 Post-traumatic stress disorder, unspecified; J45.909 Unspecified asthma, uncomplicated; F41.9 Anxiety disorder, unspecified; E66.3 Overweight; Z3A.17 17 weeks gestation of pregnancy | CPT/HCPCS: 96127 ==

== ENCOUNTER → 2025-04-02 11:29 | Outpatient (REF) | payer OTHER, SELFPAY ==
--- OUTSIDE RECORDS SUMMARY | 2025-04-02 15:14 | XMS_ITS | Clinical Summary ---
Author Organization [facility] Address [address] [place] [address] Care Team Providers Care Parboiler Name Role Phone Unavailable Primary Care Provider [...]
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
== END ==
LOC: HO.CARD 11:29
DX: R00.2 Palpitations (principal)
CPT/HCPCS: 93242

== ENCOUNTER → 2025-04-02 11:31 | Outpatient (BNV) | payer OTHER, SELFPAY | PROVIDERS: Visit Provider Internal Medicine | DX: R00.2 Palpitations (principal) | CPT/HCPCS: 93244 ==